=== PATIENT | female | born 1955 | race Caucasian/White ===

== ENCOUNTER 2017-04-25 15:53 | Outpatient (CLI) | payer OTHER, MEDICARE ==
[2017-04-25 17:26] LABS: Hemoglobin 13.4 g/dL (12.0-16.0); Mean Corpuscular Hemoglobin 30.7 pg (27.0-31.0); Mean Platelet Volume 8.6 fL (7.4-10.4); Platelet Count 300 thou/uL (130-400); RBC Distribution Width 13.2 % (11.5-14.5); Red Blood Cell (RBC) Count 4.38 mill/uL (4.20-5.40); White Blood Cell (WBC) Count 8.4 thou/uL (4.8-10.8)
[2017-04-25 17:56] LABS: ALT (SGPT) 15 U/L (8-55); AST (SGOT) 23 U/L (5-34); Albumin 3.8 g/dL (3.4-4.8); Alkaline Phosphatase 89 U/L (40-150); Anion Gap 16 mmol/L (10-20); BUN (Urea Nitrogen) 10 mg/dL (9.8-20.1); Bilirubin, Total 0.3 mg/dL (0.2-1.2); Calc. Creatinine Clearance 0 mL/min (70-130); Calcium 9.5 mg/dL (7.8-10.44); Carbon Dioxide 22 mmol/L (23-31); Chloride 105 mmol/L (98-107); Estimated GFR-MDRD 84; Globulin 3.6 g/dL (2.4-3.5); Glucose 96 mg/dL (80-115); Potassium 3.6 mmol/L (3.5-5.1); Protein, Total 7.4 g/dL (6.0-8.3); Sodium 139 mmol/L (136-145)
--- NOTE | 2017-04-25 18:56 | RAD ---
RADIOGRAPH CHEST 2 VIEWS: 04/25/17 HISTORY: 62-year-old female for preoperative evaluation. FINDINGS: There is no air space density, pulmonary edema, pleural effusion, pneumothorax, or cardiomegaly. Ther e are sternotomy wires. There is either a stent or calcification in one of the coronary arteries. IMPRESSION: No acute cardiopulmonary findings. Evidence for coronary artery atherosclerotic disease. randi [] POS: [facility]
--- NOTE | 2017-04-28 17:04 | EKG ---
Test Reason : Blood Pressure : / mmHG Vent. Rate : 079 BPM Atrial Rate : 079 BPM P-R Int : 154 ms QRS Dur : 082 ms QT Int : 400 ms P-R-T Axes : 021 -04 045 degrees QTc Int : 458 ms Normal sinus rhythm with frequent Premature ventricular complexes Low voltage QRS Inferior infarct , age undetermined Possible Anterolateral infarct , age undetermined Abnormal ECG When compared with ECG of 20-JUL-2015 07:48, Current undetermined rhythm precludes rhythm comparison, needs review T wave inversion no longer evident in Lateral leads Confirmed by SUDHIR LONDONO, SJohnny ([id number]) on 04/28/2017 5:04:14 PM Referred By: ANDREAS Confirmed By:DR. Brooklyn PEGUERO MD
== END 2017-04-25 15:54 | disposition home or self-care (01) ==
LOC: LABBT 15:53
PROVIDERS: ATTEND Internal Medicine Cardiovascular Disease
DX: Z01.818 Encounter for other preprocedural examination (principal); I50.9 Heart failure, unspecified; I25.10 Atherosclerotic heart disease of native coronary artery without angina pectoris
CPT/HCPCS: 71046; 80053; 85027; 93005; 93010

== ENCOUNTER 2017-05-01 05:53 | Observation (INO) | payer OTHER, MEDICARE ==
[2017-04-25 16:09] VITALS: BMI 41.1
[2017-05-01] MEDS ORDERED: Heparin 10,000 UNITS/1 ML VIAL ONE (06:27)
[2017-05-01] MEDS ORDERED: Lidocaine 1% (PF) 30 ML VIAL ONE (06:27)
[2017-05-01 06:56] LABS: #Eosinphils 0.1 thou/uL (0.0-0.7); #Lymphocytes 2.1 thou/uL (1.20-3.40); #Monocytes 0.6 thou/uL (0.11-0.59); #Neutrophils 4.5 thou/uL (1.40-6.50); %Basophils 0.4 % (0.0-1.0); %Eosinophils 1.9 % (0.0-10.0); %Lymphocytes 28.1 % (21.0-51.0); %Monocytes 8.4 % (0.0-10.0); %Neutrophils 61.2 % (42.0-75.0); Hemoglobin 12.5 g/dL (12.0-16.0); Mean Corpuscular HGB CONC 33.3 g/dL (32.0-36.0); Mean Corpuscular Hemoglobin 30.5 pg (27.0-31.0); Mean Corpuscular Volume 91.6 fl (81.0-99.0); Mean Platelet Volume 7.7 fL (7.4-10.4); Platelet Count 275 thou/uL (130-400); RBC Distribution Width 13.1 % (11.5-14.5); Red Blood Cell (RBC) Count 4.11 mill/uL (4.20-5.40); White Blood Cell (WBC) Count 7.3 thou/uL (4.8-10.8)
[2017-05-01 07:19] LABS: PTT 21.3 SEC (22.9-36.1)
[2017-05-01] MEDS ORDERED: Fentanyl 100 MCG/2 ML VIAL ONE (07:36)
[2017-05-01] MEDS ORDERED: Midazolam HCl 2 mg/2 ml Vial ONE (07:58)
[2017-05-01] MEDS ORDERED: Bivalirudin 250 MG VIAL ONE (08:00)
[2017-05-01] MEDS ORDERED: Temazepam 15 MG CAP PO PRN (08:24)
[2017-05-01] MEDS ORDERED: Zolpidem Tartrate 5 MG TAB PO PRN (08:25)
[2017-05-01] MEDS ORDERED: Sodium Chloride 0.9% 1,000 ML IV SCH (08:30)
[2017-05-01] MEDS ORDERED: Furosemide 20 MG TAB PO SCH (09:00)
[2017-05-01] MEDS ORDERED: Amlodipine 5 MG TAB PO SCH (09:00)
[2017-05-01] MEDS ORDERED: MORPHINE 10 MG/ML SYRINGE ONE (10:59)
[2017-05-01] MEDS ORDERED: Morphine 4 MG/ML VIAL ONE (11:01)
[2017-05-01] MEDS ORDERED: Dextrose 50% Abboject 50 ML SYRINGE SLOW IVP PRN (11:11)
[2017-05-01] MEDS ORDERED: Dextrose 5% in Water 1,000 ML IV PRN (11:11)
[2017-05-01] MEDS ORDERED: Insulin Regular 300 UNITS/3 ML VIAL SC PRN (11:11)
[2017-05-01] MEDS ORDERED: Morphine 5 MG/ML SYRINGE SLOW IVP SCH (11:15)
[2017-05-01] MEDS ORDERED: Iopamidol 370 76% 100 ML VIAL ONE (12:54)
[2017-05-01] MEDS ORDERED: Iopamidol 370 76% 50 ML VIAL FS ONE (12:54)
--- NOTE | 2017-05-01 13:41 | HP ---
HISTORY OF PRESENT ILLNESS: Ms. Ludy Gallegos is a 62-year-old white female that I followed since 1991. At that time, she had been complaining of intermittent chest discomfort for 2 years. She was placed on blood pressure medicine, her chest pain seemed to resolve. She then started to have pain a gain with episodes of substernal chest pressure radiating from her chest to the left side of her neck . EKG in [place] showed minimal T-wave changes. With 2 sublingual nitroglycerin, she had some impr ovement in her chest pain and then she was transferred here for evaluation. She was found to have pa lpable chest wall tenderness. She underwent thallium treadmill testing with no changes on EKG. Thal lium revealed anterior ischemia. She underwent cardiac catheterization, which revealed small, but no rmal coronary arteries and normal left ventricular function. Her chest wall pain resolved with Indoc in. She did have an elevated liver function test and underwent ERCP by Dr. Brush and was found to have a common duct stone. She underwent sphincterotomy with basket extraction of the common duct stone a nd then underwent open cholecystectomy. She did well until 05/2004. She started to notice lower sternal pressure that would radiate straight to her back to her left elbow and at times her right elbow and upper left jaw. These episodes would occur usually when she was walking or doing yardwork. The episodes would last anywhere from 5 minut es to 60 minutes. She will become short of breath and had significant diaphoresis, but no nausea or vomiting with the episodes. She thought this was due to indigestion and has been taking a lot of Say tac. On 05/25/2004, she had a much more intense episode and also this was prolonged. Her took her to the hospital; however, the discomfort resolved at the time of arrival and they decided not to go in. Three days later, she then had extreme weakness and fatigue all day long as well as multiple epi sodes of this chest discomfort. Again, she had a more intense and severe episode and [facility]. She was found to have positive cardiac enzymes and was transferred for further care. H er peak CK was in presentation 754, CK-MB 49.0 and troponin I of 12.3. Echo revealed posterolateral and inferior hypokinesis with an ejection fraction 45% to 50%. There was mild tricuspid regurgitatio n. At catheterization, she had normal left ventricular function with an ejection fraction of 50% to 55%. There was a 30% proximal LAD, 90% stenosis in a very small first diagonal. Circumflex totally occluded after a small first obtuse marginal. The distal vessel filled retrograde from the left and the right coronary artery. The right coronary artery had an 80% mid stenosis with ulcerated plaque a s well as 70% mid stenosis. There was a 90% stenosis at the takeoff of the right posterior descendin g. She underwent intervention with placement of Taxus 2.5 x 24 mm stent in the mid circumflex with reduc tion from 100-0%. She did not have any further episodes of chest pain during that hospital stay. Bari gutierrez also was told on a daily basis that she needed to stop smoking. Her LDL was 74 and she was placed on low dose Zocor. She was readmitted in 07/2004, continued to complain of episodes of chest discomfort. She underwent repeat catheterization and had an ejection fraction of 50% to 55%. There continued to be good result s from the circumflex stent placed in the mid vessel. There was an 80% mid right coronary artery les ion with an ulcerated plaque. There was 70% mid stenosis. The right posterior descending had a 90% ostial lesion. She then underwent CABG x2 by Dr. Gilberto Arora. There was a vein graft to the right posterolateral and piggybacked on to this was a vein graft to the right posterior descending. Her p ostoperative course was unremarkable. In 02/2005, she was admitted for chest discomfort and cardiac enzymes were negative. Then, she decid ed to leave the hospital. In general, she has done fairly well from 2004 until 07/2015 when she star cecelia having chest tightness after she possibly had food poisoning. She had inferior ST segment change s and transferred here, those changes had improved. She underwent cardiac catheterization. There wa s anteroapical and inferoapical akinesis with an ejection fraction of 30% to 35%. There was a 50% pr oximal LAD, 99% mid LAD lesion with thrombus present. The circumflex continued to show good mid vess el stent placement. The right coronary artery was totally occluded in its mid portion. The right po sterolateral graft was patent. The right posterior descending graft piggybacked onto the right poste rolateral was occluded. She then underwent pronto thrombectomy followed by a placement of Synergy 3.0 x 20 mm and 2.5 x 8 mm stent with good results. [facility] to an ejection fraction of 30% to 35%. She then returned 5 days later complaining of progressive weakness and muscle aches. It was felt th is probably was due to statin therapy and she was switched to Livalo and CoQ10. However, even on Balbina harry, she continued to have muscle pain and weakness and stopped that. Ultimately, she has been place d on Repatha mg q.2 weeks. Repeat echocardiogram several months later revealed improvement in her ejection fraction to 35% to 40%. She then had another echocardiogram that showed an ejection fra ction of 45% to 50%. On continued follow up, echo in 11/2016 revealed an ejection fraction of 30% to 35%. She did not hav e any significant worsening of her symptoms of shortness of breath or chest discomfort. [facility] in her ejection fraction. On 04/25/2017, another echocardiogra m again revealed ejection fraction of 30% to 35% with apical akinesis, mild mitral regurgitation, selma dence for diastolic dysfunction and mild tricuspid regurgitation. With her fall in ejection fraction, it was recommended she undergo cardiac catheterization to redefin e her anatomy. Risks of this were discussed with the patient including , myocardial infarction, dye reaction, vascular injury, CVA, transfusion, limb loss, renal loss, etc. Also, risk of interven tion with PTCA and stent placement were discussed including , myocardial infarction, emergent CA BG, restenosis, stent thrombosis, vessel perforation, etc. If she has not had any significant change in her coronary anatomy, then consideration certainly should be given to an ICD insertion. PAST MEDICAL HISTORY: Diabetes, hypertension, hypercholesterolemia and hypertriglyceridemia. PAST SURGICAL HISTORY: Open cholecystectomy, tonsillectomy, appendectomy, hysterectomy, breast reduc tion surgery and CABG. HOME MEDICATIONS: Repatha mg q.2 weeks, carvedilol 25 mg b.i.d., aspirin 81 daily, Brilinta 90 b.i.d., Zoloft 50 daily, lisinopril 20 mg b.i.d., furosemide 40 mg q.a.m., metformin 500 mg daily an d amitriptyline 25 at bedtime p.r.n. ALLERGIES: KEFLEX, causes anaphylaxis; PHENERGAN; SULFA; STRIBILD; CIPRO; and STADOL. SOCIAL HISTORY: She smoked 1 pack per day, but has quit. She does not drink alcohol. FAMILY HISTORY: Father of [place] in his late 40s. REVIEW OF SYSTEMS: Twelve-point review of systems otherwise unremarkable. PHYSICAL EXAMINATION: VITAL SIGNS: Blood pressure 150/72 and pulse of 80. HEENT: PERRL. NECK: Supple. CHEST: Clear. CARDIAC: S1 and S2 are normal without any S3, S4 or murmurs. ABDOMEN: Normal bowel sounds without tenderness, organomegaly. The abdomen is obese. EXTREMITIES: Revealed no clubbing, cyanosis or edema. NEUROLOGIC: Grossly intact. SKIN: Warm and dry. LABORATORY DATA: Pending. IMPRESSION: 1. Worsening ejection fraction - she had an ejection fraction of 30% to 35% in 07/2005 at the time o f her second myocardial infarction and underwent stent placement in the left anterior descending. He r ejection fraction also improved 45% to 50%. However, over the last 4 months, her ejection fraction has been 30% to 35%. She has had LifeVest for the last 3-4 months. 2. Coronary artery disease - non-Q-wave myocardial infarction in 07/2004 with total occlusion of the circumflex, which underwent stent placement. She then continued to have chest discomfort in 07/2004 , underwent coronary artery bypass grafting x2 to the right posterolateral and right posterior descen ding. 3. Non-Q-wave myocardial infarction in 07/2015, followed by drug-eluting stent placement in the mid left anterior descending. 4. Hypertension. 5. Diabetes. 6. Hypercholesterolemia. 7. Positive family history. 8. Former smoker. 9. Obesity. PLAN: The patient will undergo cardiac catheterization. She is already on Brilinta and if stent is needed, she will have a drug-coated stent placed. Also, if she does not have any significant worseni ng of her coronary anatomy, consideration should be given to ICD placement.
--- NOTE | 2017-05-01 16:01 | CON ---
ELECTROPHYSIOLOGY CONSULTATION NOTE DATE OF CONSULTATION: 05/01/2017 CONTRACT ENGINEER: Ian Arthur M.D. PRIMARY CARE PROVIDER: Sulema Ramos M.D. REASON FOR CONSULTATION: Ischemic cardiomyopathy and reduced LVEF 30% to 35%. HISTORY OF PRESENT ILLNESS: Ms. Gallegos is being referred by Dr. Arthur for her ischemic cardiomyopathy with reducing left ventricular ejection fraction. In the past, her LVEF has been preserved or mildly reduced; however, in 11/2016 , was evaluated at 30% to 35%. At that time, she began wearing a LifeVest and on reevaluation recently, EF was continued in the 30% to 35% range despite optimal medical management. She underwent left heart catheterization today on 05/01/2017 and did not require PCI. There is no lesion or new ischemia found. She does have a significant history of coronary artery disease and has previously undergone coronary artery bypass grafting. A referral today is for evaluation for ICD implant. PAST MEDICAL HISTORY: 1. Coronary artery disease with prior non-ST elevation WI in 2004 with a 2- vessel bypass in 2004. 2. Hypertension. 3. Hypercholesterolemia. 4. Morbid obesity. 5. Lower back pain. 6. Ischemic cardiomyopathy, LVEF 30% to 35% by echo in 11/21 and now by left heart catheterization. 7. Hypertension. 8. Former tobacco habituation. 9. Type 2 diabetes, on metformin, no insulin use. HOME MEDICATIONS: Carvedilol 25 mg b.i.d., aspirin 81 mg daily, Zoloft 50 mg daily, Brilinta 80 mg b.i.d., lisinopril 20 mg daily, tramadol-acetaminophen 37.5-325 mg tablets as needed, amitriptyline 25 mg at bedtime, amlodipine 5 mg daily, metformin 500 mg 1 tab daily, Lasix 40 mg daily, Repatha subcutaneous injection 140 mg per mL, 1 mL injected every 2 weeks. ALLERGIES: Include STADOL, KEFLEX, CIPRO, PHENERGAN and SULFA medications. FAMILY HISTORY: Positive for coronary artery disease of early onset before the age of 55. Negative for sudden cardiac . SOCIAL HISTORY: Former tobacco habituation, quit in 2004, negative for alcohol consumption and negative for illicit drug use. REVIEW OF SYSTEMS: A 12-point review of systems was conducted and is negative except that is listed in the HPI. Today, I found patient is feeling well. She has not had any heart racing, palpitations, chest pain or pressure. She denies any syncopal or near syncopal episodes. She is currently reporting some lower back pain as she is on bed rest from her recent left heart catheterization. She has chronic swelling of the extremities that is nonprogressive. She also experiences dyspnea on exertion that is longstanding. PHYSICAL EXAMINATION: VITAL SIGNS: Blood pressure 147/60, heart rate 89, saturating 94% oxygen on room air, respirations are 16 and temperature is 36.5 degrees Celsius. GENERAL: This is a well-developed, well-appearing female. She is morbidly obese. She is no acute distress. Her sclerae are anicteric and EOMs are intact. NECK: Supple without jugular venous distention. HEENT: Sclerae are anicteric. Her oral mucosa is moist and pink with adequate dentition. LUNGS: Respirations are even and unlabored with clear breath sounds noted bilaterally. No adventitious sounds are heard. HEART: Rate is regularly regular without significant murmur, rub or gallop. ABDOMEN: Soft, obese and nontender. With positive bowel tones noted throughout. NEUROLOGIC: Her speech is clear. Affect is appropriate. Her neurologic exam is grossly intact. Cranial nerves II-XII and exam is nonfocal. She has recently undergone moderate sedation for her procedure and is still in the recovery phase; however, no deficits are noted and she is alert and oriented. Gait was not assessed as patient is on bed rest. DATA BASE: EKG: Sinus rhythm with occasional ventricular ectopy, rate 89. A left heart catheterization performed today on 05/01/[address] Arthur for diagnosis of coronary artery disease and bypass grafting revealed apical dyskinesis and mild global hypokinesis. Ejection fraction was 30% to 35%. There was mild mitral regurgitation. Coronary arteries left main was normal, LAD 50% proximal, 30% mid and 50% mid LAD in stent restenosis. Circumflex was patent. There was a patent stent noted proximally and RCA has a 100% chronic occlusion in the mid region of the vessel. She has 2 prior grafts, one patent with a 30% proximal lesion and her graft to the RPDA, which is then chronically occluded for some time. IMPRESSION: 1. Systolic heart failure, chronic heart failure and ischemic cardiomyopathy, moderate to severely reduced left ventricular ejection fraction estimated at 30 % to 35%. 2. Stable coronary artery disease, prior coronary artery bypass grafting and non-ST elevation myocardial infarction. 3. Morbid obesity. 4. Type 2 diabetes. 5. Hypertension. PLAN: At this point. ICD was discussed with the patient and her at length including risks and benefits. Clinical decision was utilized demonstrating benefits and considerations regarding ICD implantation. The patient and her verbalized understanding. They understand the risks associated with the procedure, including pain, infection, damage to the blood vessel, pneumothorax, perforation of the heart, arrhythmias and possibly . They acknowledges risks and wished to proceed with scheduling. We will proceed with ICD implant possibly later today or tomorrow morning, likely be tomorrow morning. We will keep the patient n.p.o. in anticipation of that. I performed the interview and physicial exam with decision making personally. TIFFANY
[2017-05-01] MEDS ORDERED: Acetaminophen/Codeine 30-300mg Tablet PO PRN (16:03)
[2017-05-01] MEDS: Acetaminophen/Codeine 30-300mg Tablet PO PRN ×2 (16:29→21:12)
[2017-05-01] MEDS: Carvedilol 25 MG TAB PO SCH (16:41)
[2017-05-01] MEDS: Aspirin 81 mg Enteric Coated Tablet PO SCH (19:36)
[2017-05-01] MEDS: Lisinopril 20 MG TAB PO SCH ×2 (19:39→21:10)
[2017-05-02 05:55] LABS: #Eosinphils 0.1 thou/uL (0.0-0.7); #Lymphocytes 1.6 thou/uL (1.20-3.40); #Monocytes 0.4 thou/uL (0.11-0.59); #Neutrophils 3.6 thou/uL (1.40-6.50); %Basophils 0.6 % (0.0-1.0); %Eosinophils 1.9 % (0.0-10.0); %Lymphocytes 27.7 % (21.0-51.0); %Monocytes 7.5 % (0.0-10.0); %Neutrophils 62.3 % (42.0-75.0); Hemoglobin 11.6 g/dL (12.0-16.0); Mean Corpuscular HGB CONC 30.6 g/dL (32.0-36.0); Mean Corpuscular Hemoglobin 28.7 pg (27.0-31.0); Mean Corpuscular Volume 93.8 fl (81.0-99.0); Mean Platelet Volume 8.2 fL (7.4-10.4); Platelet Count 220 thou/uL (130-400); RBC Distribution Width 13.1 % (11.5-14.5); Red Blood Cell (RBC) Count 4.04 mill/uL (4.20-5.40); White Blood Cell (WBC) Count 5.8 thou/uL (4.8-10.8)
[2017-05-02 06:08] LABS: AST (SGOT) 46 U/L (5-34); Albumin 3.3 g/dL (3.4-4.8); Anion Gap 13 mmol/L (10-20); BUN (Urea Nitrogen) 8 mg/dL (9.8-20.1); Bilirubin, Total 0.5 mg/dL (0.2-1.2); Calc. Creatinine Clearance 155 mL/min (70-130); Calcium 8.5 mg/dL (7.8-10.44); Carbon Dioxide 21 mmol/L (23-31); Chloride 108 mmol/L (98-107); Estimated GFR-MDRD Greater than 90; Globulin 2.9 g/dL (2.4-3.5); Glucose 117 mg/dL (80-115); Protein, Total 6.2 g/dL (6.0-8.3); Sodium 138 mmol/L (136-145)
[2017-05-02 06:16] LABS: ALT (SGPT) 29 U/L (8-55); Alkaline Phosphatase 87 U/L (40-150)
[2017-05-02] MEDS ORDERED: Lidocaine 1% (PF) 30 ML VIAL ONE ×2 (08:59→15:24)
[2017-05-02] MEDS ORDERED: CEFAZOLIN/Water 2 GM/20 ML SYRINGE ONE (08:59)
[2017-05-02] MEDS ORDERED: Iopamidol 370 76% 50 ML VIAL FS ONE (12:23)
[2017-05-02] MEDS: Lisinopril 20 MG TAB PO SCH ×2 (12:33→21:09)
[2017-05-02] MEDS: Carvedilol 25 MG TAB PO SCH ×2 (12:33→17:46)
[2017-05-02] MEDS: Aspirin 81 mg Enteric Coated Tablet PO SCH (12:33)
[2017-05-02] MEDS: Furosemide 40 MG TAB PO SCH (12:36)
[2017-05-02] MEDS ORDERED: Fentanyl 250 MCG/5 ML VIAL ONE (15:09)
[2017-05-02] MEDS ORDERED: Midazolam HCl 2 mg/2 ml Vial ONE ×3 (15:10→15:41)
[2017-05-02] MEDS ORDERED: Acetaminophen/Codeine 30-300mg Tablet PO PRN ×2 (16:45)
[2017-05-02] MEDS: Clindamycin 150 MG CAP PO SCH (17:46)
--- NOTE | 2017-05-02 18:50 | RAD ---
SINGLE VIEW OF THE CHEST: 05/02/17 COMPARISON: 04/25/17 HISTORY: Pacemaker placement for cardiac arrhythmias. FINDINGS: Single view of the chest shows a cardiomediastinal silhouette which is upper limits of normal in size . The patient is status post sternotomy. There has been interval placement of a pacemaker with its ti p in the right ventricle. No consolidation, mass, pneumothorax or pleural effusion are seen. IMPRESSION: Status post pacemaker placement without evidence of complication. POS: [facility]
[2017-05-03] MEDS: Clindamycin 150 MG CAP PO SCH ×2 (01:28→05:11)
[2017-05-03] MEDS: Carvedilol 25 MG TAB PO SCH (08:08)
[2017-05-03] MEDS: Aspirin 81 mg Enteric Coated Tablet PO SCH (08:08)
[2017-05-03] MEDS: Lisinopril 20 MG TAB PO SCH (08:09)
[2017-05-03] MEDS: Furosemide 40 MG TAB PO SCH (08:09)
[2017-05-03 08:10] VITALS: BP 153/83
[2017-05-03 08:19] VITALS: TEMP 97.8
--- NOTE | 2017-05-03 08:44 | RAD ---
AP VIEW CHEST: Date: 05/03/17 INDICATION: Pacemaker placement. IMPRESSION: Examination is not appreciably changed from the comparison study. AICD is unchanged in position. No p neumothorax is demonstrated. POS: [facility]
--- NOTE | 2017-05-03 13:29 | DIS ---
DISCHARGE DIAGNOSES: 1. Ischemic cardiomyopathy with worsening ejection fraction to 30%-35% over the last 4 months. 2. Coronary artery disease - non-Q-wave myocardial infarction in 05/2004 with total occlusion of the circumflex, followed by stent placement. In 07/2004, she underwent coronary artery bypass grafting x2 to the right posterolateral and right posterior descending. 3. Non-Q-wave myocardial infarction in 07/2015 with the right posterior descending graft closed at t hat time. She underwent drug-eluting stent in the mid left anterior descending. 4. Stable coronary anatomy with normal flow wire of the mid left anterior descending. 5. Hypertension. 6. Diabetes. 7. Hypercholesterolemia, under poor control with LDL increasing from 19 to 72 while on Repatha, rein forced the need for low cholesterol diet. 8. Positive family history. 9. Former smoker. 10. Obesity. 11. Single chamber ICD placement on this admission. DISCHARGE DISPOSITION: The patient will be seen in 3 months with complete metabolic profile, fasting lipid profile, and CardioSight had been obtained. DISCHARGE MEDICATIONS: Clindamycin 300 mg q.6 hours x1 week, aspirin 81 daily, carvedilol 25 mg b.i. d., furosemide 40 mg q.a.m., insulin - Levemir, sliding scale, insulin - regular, lisinopril 20 mg b. i.d., metformin 500 mg q.a.m., Zoloft 50 mg daily, temazepam 30 mg at bedtime p.r.n., Ambien 5 mg at bedtime p.r.n., Repatha 140 mg q.2 weeks. HOSPITAL COURSE: Ms. Gallegos on routine a followup in 11/2016 and was found to have ejection fraction of 30%-35%. She did have improvement to 45%-50% after her myocardial infarction. She was fitted wi th a LifeVest and a repeat echocardiogram on 04/25/2017, continued to reveal ejection fraction of 30% -35%. She underwent cardiac catheterization which revealed anterior akinesis, apical dyskinesis, and mild g lobal hypokinesis with ejection fraction of 30%-35%. There was mild mitral regurgitation. Coronary arteries revealed normal left main, 50% proximal LAD, 30% stenosis in the mid LAD proximal to the joaquín nt, 50% mid LAD stent in-stent restenosis. There was a proximal circumflex stent exchanged show good results. The right coronary was totally occluded. Bypass graft to the right posterolateral artery was patent. The graft to the right posterior descending piggybacked onto the right posterolateral gr aft was occluded as it has been for many years. Consultation was obtained with Dr. Flanagan regarding ICD placement and a single chamber ICD was placed. She was observed overnight and then discharged. It was felt she may discontinue Brilinta at this ti me.
--- NOTE | 2017-05-03 15:13 | PRG ---
DATE OF SERVICE: 05/03/2017 SUBJECTIVE: Ms. Gallegos is doing well one day after her ICD implant. OBJECTIVE DATA: VITAL SIGNS: Blood pressure is 153/83, heart rate 80, respirations 18, temperature 97.8 degrees Fahr enheit. GENERAL: She is alert and oriented woman in no apparent distress. NECK: Supple. Jugular veins not distended. CHEST: Coarse without crackles. CARDIOVASCULAR: Heart sounds are regular to rate and rhythm. Left precordial pacemaker defibrillato r insertion site is well healed. ABDOMEN: Benign. EXTREMITIES: Lower extremities without edema. DATABASE: The chest x-ray reveals no pneumothorax. ICE interrogation revealed an adequately functio regan single chamber ICD battery longevity beginning of life. Lead parameters are adequate ASSESSMENT AND PLAN: Ms. Gallegos is a pleasant 62-year-old woman with prior history of congestive hea rt failure and ischemic cardiomyopathy, who underwent a single-chamber ICD implantation yesterday. S he seems to be doing well 1 day postoperative. Plan is one week of antibiotics and follow up in 2 we eks at the office for wound check.
[2017-05-04] MEDS ORDERED: metFORMIN 500 MG TAB PO SCH (08:00)
== END 2017-05-03 10:48 | disposition home or self-care (01) ==
LOC: CCL 05:53 → 2SW 09:10
PROVIDERS: ADMIT Internal Medicine Cardiovascular Disease; ATTEND Internal Medicine Cardiovascular Disease
PROC: 0JH608Z Insertion of Defibrillator Generator into Chest Subcutaneous Tissue and Fascia, Open Approach (ICD-10-PCS; principal; 2017-05-03)
PROC: 02HK3KZ Insertion of Defibrillator Lead into Right Ventricle, Percutaneous Approach (ICD-10-PCS; 2017-05-03)
PROC: 4A023N7 Measurement of Cardiac Sampling and Pressure, Left Heart, Percutaneous Approach (ICD-10-PCS; 2017-05-03)
PROC: B2151ZZ Fluoroscopy of Left Heart using Low Osmolar Contrast (ICD-10-PCS; 2017-05-03)
PROC: 4A023N7 Measurement of Cardiac Sampling and Pressure, Left Heart, Percutaneous Approach (ICD-10-PCS; 2017-05-03)
PROC: B2121ZZ Fluoroscopy of Single Coronary Artery Bypass Graft using Low Osmolar Contrast (ICD-10-PCS; 2017-05-03)
DX: I25.5 Ischemic cardiomyopathy (principal); I25.10 Atherosclerotic heart disease of native coronary artery without angina pectoris; I25.2 Old myocardial infarction; E11.9 Type 2 diabetes mellitus without complications; I11.0 Hypertensive heart disease with heart failure; I50.22 Chronic systolic (congestive) heart failure; E78.00 Pure hypercholesterolemia, unspecified; M54.5 Low back pain; E66.01 Morbid (severe) obesity due to excess calories; Z68.41 Body mass index [BMI] 40.0-44.9, adult; Z79.84 Long term (current) use of oral hypoglycemic drugs; Z79.82 Long term (current) use of aspirin; Z79.899 Other long term (current) drug therapy; Z88.1 Allergy status to other antibiotic agents; Z88.2 Allergy status to sulfonamides; Z88.8 Allergy status to other drugs, medicaments and biological substances; Z95.1 Presence of aortocoronary bypass graft; Z90.49 Acquired absence of other specified parts of digestive tract; Z90.89 Acquired absence of other organs; Z90.710 Acquired absence of both cervix and uterus; Z98.890 Other specified postprocedural states; Z87.891 Personal history of nicotine dependence; Z82.49 Family history of ischemic heart disease and other diseases of the circulatory system
CPT/HCPCS: 33249; 36005; 36415; 36416; 71045; 75820; 80053; 85025; 85347; 85610; 85730; 93005; 93010; 93459; 93571; 96361; 96374; 99152; 99153; A4216; C1769; C1777; C1786; C1887; G0378; J0153; J0583; J1644; J2001; J2250; J2270; J3010; J3490

== ENCOUNTER → 2017-05-25 | Day surgery (SDC) | payer OTHER, MEDICARE ==
[2017-05-24 09:57] VITALS: BMI 38.9
[~2017-05-25] MED LIST: Clindamycin/D5W 900 mg/50 ml Premix Bag ONE; Fentanyl 100 MCG/2 ML VIAL ONE; Levofloxacin 500 mg/D5W 100 ml Premix Bag ONE; Lidocaine 1% (PF) 30 ML VIAL ONE; Lidocaine 1% PF 5 ML VIAL ONE; Midazolam HCl 2 mg/2 ml Vial ONE; PHENYLEPHRINE-NS 100 MCG/ML 10 ML SYRINGE ONE; PROPOFOL 200 MG/20 ML VIAL ONE
[2017-05-25 11:10] LABS: #Basophils 0.1 thou/uL (0.0-0.2); #Eosinphils 0.2 thou/uL (0.0-0.7); #Lymphocytes 1.6 thou/uL (1.20-3.40); #Monocytes 0.4 thou/uL (0.11-0.59); #Neutrophils 4.3 thou/uL (1.40-6.50); %Basophils 0.8 % (0.0-1.0); %Eosinophils 2.6 % (0.0-10.0); %Lymphocytes 24.9 % (21.0-51.0); %Monocytes 6.7 % (0.0-10.0); Hemoglobin 12.9 g/dL (12.0-16.0); Mean Corpuscular HGB CONC 33.2 g/dL (32.0-36.0); Mean Corpuscular Hemoglobin 31.2 pg (27.0-31.0); Mean Corpuscular Volume 93.8 fl (81.0-99.0); Mean Platelet Volume 8.2 fL (7.4-10.4); Platelet Count 272 thou/uL (130-400); Red Blood Cell (RBC) Count 4.15 mill/uL (4.20-5.40); White Blood Cell (WBC) Count 6.6 thou/uL (4.8-10.8)
[2017-05-25 11:17] LABS: INR-International Normal Ratio 1.1; Prothrombin Time 13.8 SEC (12.0-14.7)
[2017-05-25 11:34] LABS: Anion Gap 16 mmol/L (10-20); BUN (Urea Nitrogen) 15 mg/dL (9.8-20.1); Calc. Creatinine Clearance 124 mL/min (70-130); Calcium 9.7 mg/dL (7.8-10.44); Carbon Dioxide 21 mmol/L (23-31); Chloride 106 mmol/L (98-107); Estimated GFR-MDRD 82; Glucose 122 mg/dL (80-115); Potassium 4.5 mmol/L (3.5-5.1); Sodium 138 mmol/L (136-145)
--- NOTE | 2017-05-25 13:00 | RAD ---
CHEST ONE VIEW: HISTORY: Cardiac arrhythmia. Lead change. COMPARISON: 05/03/2017 FINDINGS: The cardiac silhouette is magnified and at the upper limits of normal in size. The pulmonary vascula ture is unremarkable. The mediastinum is midline with postoperative changes and a single lead left s ubclavian cardiac defibrillator. There is no lobar consolidation or evidence of pneumothorax. IMPRESSION: Left subclavian defibrillator is in good radiographic position. POS: [facility]
== END ==
LOC: CCL 10:37
PROVIDERS: ATTEND Internal Medicine Cardiovascular Disease
PROC: 02HK0JZ Insertion of Pacemaker Lead into Right Ventricle, Open Approach (ICD-10-PCS; principal; 2017-05-25)
PROC: 02PA3MZ Removal of Cardiac Lead from Heart, Percutaneous Approach (ICD-10-PCS; principal; 2017-05-25)
DX: I25.5 Ischemic cardiomyopathy (principal); I11.0 Hypertensive heart disease with heart failure; I50.22 Chronic systolic (congestive) heart failure; E11.9 Type 2 diabetes mellitus without complications; E78.00 Pure hypercholesterolemia, unspecified; E66.9 Obesity, unspecified; Z68.39 Body mass index [BMI] 39.0-39.9, adult; Z88.1 Allergy status to other antibiotic agents; Z88.2 Allergy status to sulfonamides; Z79.02 Long term (current) use of antithrombotics/antiplatelets; Z79.82 Long term (current) use of aspirin; Z79.84 Long term (current) use of oral hypoglycemic drugs; Z79.899 Other long term (current) drug therapy; Z87.891 Personal history of nicotine dependence
CPT/HCPCS: 33226; 36415; 71045; 80048; 85025; 85610; 85730; 93642; C1777; J1956; J2001; J2250; J2704; J3010; J3490

== ENCOUNTER 2020-09-15 10:07 | Inpatient (IN) | payer BC, MEDICARE ==
[2020-09-15] MEDS ORDERED: Dexamethasone 4 mg/ml Vial ONE (10:43)
[2020-09-15] MEDS ORDERED: Temazepam 15 MG CAP PO PRN (14:19)
[2020-09-15] MEDS ORDERED: Dextrose 50% Abboject 50 ML SYRINGE SLOW IVP PRN (14:19)
[2020-09-15] MEDS ORDERED: Dextrose 5% in Water 1,000 ML IV PRN (14:19)
[2020-09-15] MEDS ORDERED: Ondansetron PF 4 MG/2 ML Vial ONE (14:22)
[2020-09-15] MEDS ORDERED: REMDESIVIR 200 MG in Sodium Chloride 0.9% 250 ML 210 ML IV SCH (18:00)
[2020-09-15] MEDS: HumaLOG 300 UNITS/3 ML VIAL SC PRN (18:07)
[2020-09-15] MEDS: Ondansetron PF 4 MG/2 ML Vial IVP PRN (18:14)
[2020-09-15] MEDS: Benzonatate 100 MG CAP PO PRN (20:08)
[2020-09-15] MEDS: Enoxaparin Sodium 40 MG/0.4 ML SYRINGE SC SCH (20:08)
[2020-09-15] MEDS: GUAIFENESIN SF SOLN 200 MG/10 ML UDCUP PO PRN (21:41)
[2020-09-15] MEDS: Acetaminophen 325 MG TAB PO PRN (22:15)
[2020-09-16] MEDS: Ondansetron PF 4 MG/2 ML Vial IVP PRN ×2 (01:43→08:00)
[2020-09-16] MEDS: GUAIFENESIN SF SOLN 200 MG/10 ML UDCUP PO PRN ×2 (01:43→05:46)
[2020-09-16] MEDS: Benzonatate 100 MG CAP PO PRN (04:44)
[2020-09-16] MEDS: Acetaminophen 325 MG TAB PO PRN ×3 (06:44→23:14)
[2020-09-16] MEDS: Enoxaparin Sodium 40 MG/0.4 ML SYRINGE SC SCH ×2 (07:59→19:45)
[2020-09-16] MEDS: Zinc Sulfate 220 MG CAP PO SCH (08:00)
[2020-09-16 08:25] LABS: #Lymphocytes 0.7 thou/uL (1.20-3.40); #Monocytes 0.3 thou/uL (0.11-0.59); #Neutrophils 7.2 thou/uL (1.40-6.50); %Eosinophils 0.2 % (0.0-10.0); %Lymphocytes 8.4 % (21.0-51.0); %Monocytes 3.2 % (0.0-10.0); %Neutrophils 88.2 % (42.0-75.0); Hemoglobin 12.3 g/dL (12.0-16.0); Mean Corpuscular HGB CONC 32.7 g/dL (32.0-36.0); Mean Corpuscular Hemoglobin 30.4 pg (27.0-31.0); Mean Platelet Volume 8.9 fL (7.4-10.4); Platelet Count 223 thou/uL (130-400); RBC Distribution Width 12.5 % (11.5-14.5); Red Blood Cell (RBC) Count 4.05 mill/uL (4.20-5.40); White Blood Cell (WBC) Count 8.2 thou/uL (4.8-10.8)
[2020-09-16 08:37] LABS: Anion Gap 17 mmol/L (10-20); BUN (Urea Nitrogen) 42 mg/dL (9.8-20.1); CRP (Inflammatory) 19.62 mg/dL (= or < 0.5); Calc. Creatinine Clearance 99 mL/min (70-130); Calcium 8.5 mg/dL (7.8-10.44); Carbon Dioxide 19 mmol/L (23-31); Chloride 105 mmol/L (98-107); Glucose 122 mg/dL (80-115); Potassium 4.3 mmol/L (3.5-5.1); Sodium 137 mmol/L (136-145)
[2020-09-16] MEDS: Aspirin 81 mg Enteric Coated Tablet PO SCH (08:41)
[2020-09-16] MEDS: guaiFENesin ER 600 MG TAB PO SCH ×2 (08:41→19:42)
[2020-09-16] MEDS: Benzonatate 100 MG CAP PO SCH ×2 (08:42→16:00)
[2020-09-16] MEDS: Furosemide 40 MG TAB PO SCH ×2 (08:42→14:50)
[2020-09-16] MEDS ORDERED: Dexamethasone 6 MG in Sodium Chloride 0.9% 50 ML IVPB SCH (09:00)
[2020-09-16] MEDS ORDERED: Non-Formulary Item 1 EACH (Sertraline Hcl [Zoloft] 50 MG Tab) PO SCH (09:00)
[2020-09-16] MEDS ORDERED: Carvedilol 25 MG TAB PO SCH ×2 (09:00)
[2020-09-16] MEDS ORDERED: Ascorbic Acid 500 mg Chewable Tablet PO SCH (09:00)
[2020-09-16] MEDS ORDERED: SODIUM CHLORIDE 0.9% IV SCH (10:45)
[2020-09-16] MEDS ORDERED: Tocilizumab 400 MG in Sodium Chloride 0.9% 80 ML IV SCH (10:45)
[2020-09-16] MEDS ORDERED: TOCILIZUMAB IV SCH (10:45)
[2020-09-16] MEDS: Metoclopramide HCl 10 MG/2 ML VIAL IVP PRN ×2 (11:09→19:42)
[2020-09-16] MEDS: HumaLOG 300 UNITS/3 ML VIAL SC PRN (13:10)
[2020-09-16] MEDS: Pantoprazole 40 MG VIAL IVPB SCH (14:50)
[2020-09-16] MEDS ORDERED: REMDESIVIR 100 MG in Sodium Chloride 0.9% 250 ML 230 ML IV SCH (18:00)
[2020-09-16] MEDS: Ondansetron ODT 4 MG TAB PO PRN (18:10)
[2020-09-16] MEDS: hydrALAZINE 20 MG/ML VIAL SLOW IVP PRN ×2 (18:10→21:51)
[2020-09-16] MEDS: Amlodipine 5 MG TAB PO SCH (20:22)
[2020-09-16] MEDS: REMDESIVIR 100 MG in Sodium Chloride 0.9% 250 ML 230 ML IV SCH (20:22)
[2020-09-16] MEDS: Melatonin 3 MG TAB PO PRN (23:14)
[2020-09-17] MEDS: Benzonatate 100 MG CAP PO SCH ×3 (01:02→17:14)
[2020-09-17 05:33] LABS: Anion Gap 16 mmol/L (10-20); BUN (Urea Nitrogen) 39 mg/dL (9.8-20.1); Calc. Creatinine Clearance 100 mL/min (70-130); Calcium 8.4 mg/dL (7.8-10.44); Carbon Dioxide 20 mmol/L (23-31); Chloride 105 mmol/L (98-107); Glucose 143 mg/dL (80-115); Potassium 4.3 mmol/L (3.5-5.1); Sodium 137 mmol/L (136-145)
[2020-09-17] MEDS ORDERED: Loratadine 10 MG TAB PO PRN (07:52)
[2020-09-17] MEDS ORDERED: Hydrocerin (Eucerin) Cream 120 gm Jar TOP PRN (07:52)
[2020-09-17] MEDS ORDERED: Sodium Chloride 0.65% Nasal 44 ML BOT EA NARE PRN (07:52)
[2020-09-17] MEDS ORDERED: Senokot S 8.6-50 MG TAB PO PRN (07:52)
[2020-09-17] MEDS ORDERED: Calcium Carbonate 500 MG ChewTAB PO PRN (07:52)
[2020-09-17] MEDS ORDERED: Labetalol HCl 100 MG/20 ML VIAL SLOW IVP PRN (07:52)
[2020-09-17] MEDS ORDERED: Artificial Tear Sol 15 ML BOT EA EYE PRN (07:52)
[2020-09-17] MEDS ORDERED: Bisacodyl 5 MG TAB PO PRN (07:52)
[2020-09-17] MEDS ORDERED: Cepastat Lozenges 1 LOZ PO PRN (07:52)
[2020-09-17] MEDS: Carvedilol 6.25 MG TAB PO SCH ×2 (08:09→17:11)
[2020-09-17] MEDS: Amlodipine 5 MG TAB PO SCH ×2 (08:09→20:50)
[2020-09-17] MEDS: Aspirin 81 mg Enteric Coated Tablet PO SCH (08:10)
[2020-09-17] MEDS: Ascorbic Acid 500 mg Chewable Tablet PO SCH (08:10)
[2020-09-17] MEDS: Dexamethasone 4 mg/ml Vial SLOW IVP SCH (08:10)
[2020-09-17] MEDS: Furosemide 40 MG TAB PO SCH ×2 (08:11→13:23)
[2020-09-17] MEDS: guaiFENesin ER 600 MG TAB PO SCH ×2 (08:11→20:50)
[2020-09-17] MEDS: Enoxaparin Sodium 40 MG/0.4 ML SYRINGE SC SCH ×2 (08:11→20:50)
[2020-09-17] MEDS: Metoclopramide HCl 10 MG/2 ML VIAL IVP PRN (08:12)
[2020-09-17] MEDS: Zinc Sulfate 220 MG CAP PO SCH (08:12)
[2020-09-17 09:00] LABS: #Monocytes 0.5 thou/uL (0.11-0.59); #Neutrophils 4.5 thou/uL (1.40-6.50); %Basophils 0.4 % (0.0-1.0); %Eosinophils 0.1 % (0.0-10.0); %Lymphocytes 16.7 % (21.0-51.0); %Neutrophils 74.9 % (42.0-75.0); Hemoglobin 12.9 g/dL (12.0-16.0); Mean Corpuscular HGB CONC 32.4 g/dL (32.0-36.0); Mean Corpuscular Hemoglobin 29.8 pg (27.0-31.0); Mean Corpuscular Volume 91.8 fL (78.0-98.0); Mean Platelet Volume 8.2 fL (7.4-10.4); Platelet Count 261 thou/uL (130-400); RBC Distribution Width 12.5 % (11.5-14.5); Red Blood Cell (RBC) Count 4.34 mill/uL (4.20-5.40)
[2020-09-17] MEDS: Ondansetron PF 4 MG/2 ML Vial IVP PRN (11:44)
[2020-09-17] MEDS: HumaLOG 300 UNITS/3 ML VIAL SC PRN ×2 (11:45→17:09)
[2020-09-17] MEDS: Pantoprazole 40 MG VIAL IVPB SCH (13:24)
[2020-09-17] MEDS: Acetaminophen 325 MG TAB PO PRN (17:11)
[2020-09-17] MEDS: REMDESIVIR 100 MG in Sodium Chloride 0.9% 250 ML 230 ML IV SCH (20:48)
[2020-09-17] MEDS: Melatonin 3 MG TAB PO PRN (20:50)
[2020-09-17] MEDS: Sacubitril 49 MG/Valsartan 51 MG TABLET PO SCH (20:53)
[2020-09-18] MEDS: Benzonatate 100 MG CAP PO SCH ×3 (00:55→16:57)
[2020-09-18] MEDS: Acetaminophen 325 MG TAB PO PRN ×3 (03:33→19:23)
[2020-09-18 05:40] LABS: #Monocytes 0.7 thou/uL (0.11-0.59); #Neutrophils 4.1 thou/uL (1.40-6.50); %Eosinophils 0.2 % (0.0-10.0); %Lymphocytes 16.7 % (21.0-51.0); %Monocytes 12.6 % (0.0-10.0); %Neutrophils 70.5 % (42.0-75.0); Hemoglobin 12.6 g/dL (12.0-16.0); Mean Corpuscular HGB CONC 33.7 g/dL (32.0-36.0); Mean Corpuscular Hemoglobin 30.9 pg (27.0-31.0); Mean Corpuscular Volume 91.7 fL (78.0-98.0); Platelet Count 264 thou/uL (130-400); RBC Distribution Width 12.4 % (11.5-14.5); Red Blood Cell (RBC) Count 4.09 mill/uL (4.20-5.40); White Blood Cell (WBC) Count 5.8 thou/uL (4.8-10.8)
[2020-09-18 05:54] LABS: ALT (SGPT) 20 U/L (8-55); AST (SGOT) 33 U/L (5-34); Albumin 3.5 g/dL (3.4-4.8); Alkaline Phosphatase 71 U/L (40-110); Bilirubin, Direct 0.2 mg/dL (0.1-0.3); Bilirubin, Total 0.4 mg/dL (0.2-1.2); Protein, Total 6.8 g/dL (5.8-8.1)
[2020-09-18 05:56] LABS: ALT (SGPT) 19 U/L (8-55); AST (SGOT) 34 U/L (5-34); Albumin 3.5 g/dL (3.4-4.8); Alkaline Phosphatase 71 U/L (40-110); Anion Gap 15 mmol/L (10-20); BUN (Urea Nitrogen) 36 mg/dL (9.8-20.1); Bilirubin, Total 0.4 mg/dL (0.2-1.2); Calc. Creatinine Clearance 95 mL/min (70-130); Calcium 8.7 mg/dL (7.8-10.44); Carbon Dioxide 23 mmol/L (23-31); Chloride 105 mmol/L (98-107); Globulin 3.4 g/dL (2.4-3.5); Glucose 158 mg/dL (80-115); Potassium 4.2 mmol/L (3.5-5.1); Protein, Total 6.9 g/dL (5.8-8.1); Sodium 139 mmol/L (136-145)
[2020-09-18] MEDS: Carvedilol 6.25 MG TAB PO SCH ×2 (07:45→16:57)
[2020-09-18] MEDS: Aspirin 81 mg Enteric Coated Tablet PO SCH (07:46)
[2020-09-18] MEDS: Ascorbic Acid 500 mg Chewable Tablet PO SCH (07:46)
[2020-09-18] MEDS: Dexamethasone 4 mg/ml Vial SLOW IVP SCH (07:46)
[2020-09-18] MEDS: Amlodipine 5 MG TAB PO SCH ×2 (07:46→21:04)
[2020-09-18] MEDS: hydrALAZINE 25 MG TAB PO SCH ×2 (07:47→21:04)
[2020-09-18] MEDS: Enoxaparin Sodium 40 MG/0.4 ML SYRINGE SC SCH ×2 (07:47→21:04)
[2020-09-18] MEDS: Furosemide 40 MG TAB PO SCH (07:47)
[2020-09-18] MEDS: guaiFENesin ER 600 MG TAB PO SCH ×2 (07:47→21:03)
[2020-09-18] MEDS: Sacubitril 49 MG/Valsartan 51 MG TABLET PO SCH ×2 (07:48→21:04)
[2020-09-18] MEDS: Zinc Sulfate 220 MG CAP PO SCH (07:51)
[2020-09-18] MEDS ORDERED: Furosemide 40 MG/4 ML VIAL SLOW IVP SCH (10:00)
[2020-09-18] MEDS: Ondansetron PF 4 MG/2 ML Vial IVP PRN ×2 (11:10→21:05)
[2020-09-18] MEDS: Furosemide 40 MG/4 ML VIAL SLOW IVP SCH (13:52)
[2020-09-18] MEDS: Pantoprazole 40 MG VIAL IVPB SCH (14:00)
[2020-09-18] MEDS: HumaLOG 300 UNITS/3 ML VIAL SC PRN ×2 (16:58→21:19)
[2020-09-18] MEDS: REMDESIVIR 100 MG in Sodium Chloride 0.9% 250 ML 230 ML IV SCH (21:03)
[2020-09-18] MEDS: Melatonin 3 MG TAB PO PRN (21:04)
[2020-09-19] MEDS: Benzonatate 100 MG CAP PO SCH ×4 (00:32→16:17)
[2020-09-19] MEDS: Zolpidem Tartrate 5 MG TAB PO PRN ×2 (01:18→19:48)
[2020-09-19] MEDS: Acetaminophen 325 MG TAB PO PRN (01:18)
[2020-09-19 05:18] LABS: #Basophils 0.1 thou/uL (0.0-0.2); #Lymphocytes 0.9 thou/uL (1.20-3.40); #Monocytes 0.7 thou/uL (0.11-0.59); #Neutrophils 4.2 thou/uL (1.40-6.50); %Basophils 0.9 % (0.0-1.0); %Eosinophils 0.2 % (0.0-10.0); %Lymphocytes 14.7 % (21.0-51.0); %Monocytes 12.1 % (0.0-10.0); %Neutrophils 72.1 % (42.0-75.0); Hemoglobin 12.3 g/dL (12.0-16.0); Mean Corpuscular HGB CONC 31.7 g/dL (32.0-36.0); Mean Corpuscular Hemoglobin 29.2 pg (27.0-31.0); Mean Corpuscular Volume 92.1 fL (78.0-98.0); Mean Platelet Volume 7.9 fL (7.4-10.4); Platelet Count 244 thou/uL (130-400); RBC Distribution Width 12.4 % (11.5-14.5); Red Blood Cell (RBC) Count 4.19 mill/uL (4.20-5.40); White Blood Cell (WBC) Count 5.9 thou/uL (4.8-10.8)
[2020-09-19] MEDS: Furosemide 40 MG/4 ML VIAL SLOW IVP SCH ×2 (05:23→13:40)
[2020-09-19 05:47] LABS: Anion Gap 16 mmol/L (10-20); BUN (Urea Nitrogen) 35 mg/dL (9.8-20.1); Calc. Creatinine Clearance 92 mL/min (70-130); Calcium 8.6 mg/dL (7.8-10.44); Carbon Dioxide 21 mmol/L (23-31); Chloride 103 mmol/L (98-107); Glucose 172 mg/dL (80-115); Phosphorus 3.1 mg/dL (2.3-4.7); Sodium 136 mmol/L (136-145)
[2020-09-19] MEDS: HumaLOG 300 UNITS/3 ML VIAL SC PRN ×2 (05:57→16:23)
[2020-09-19] MEDS: Sacubitril 49 MG/Valsartan 51 MG TABLET PO SCH ×3 (08:08→20:54)
[2020-09-19] MEDS: Aspirin 81 mg Enteric Coated Tablet PO SCH (08:09)
[2020-09-19] MEDS: Enoxaparin Sodium 40 MG/0.4 ML SYRINGE SC SCH ×2 (08:09→19:48)
[2020-09-19] MEDS: hydrALAZINE 25 MG TAB PO SCH ×3 (08:09→20:54)
[2020-09-19] MEDS: Amlodipine 5 MG TAB PO SCH ×3 (08:09→20:53)
[2020-09-19] MEDS: guaiFENesin ER 600 MG TAB PO SCH ×2 (08:09→19:49)
[2020-09-19] MEDS: Zinc Sulfate 220 MG CAP PO SCH (08:10)
[2020-09-19] MEDS: Ascorbic Acid 500 mg Chewable Tablet PO SCH (08:10)
[2020-09-19] MEDS: Dexamethasone 4 mg/ml Vial SLOW IVP SCH (08:10)
[2020-09-19] MEDS: Carvedilol 6.25 MG TAB PO SCH ×2 (08:10→16:16)
[2020-09-19] MEDS: Ondansetron PF 4 MG/2 ML Vial IVP PRN (08:12)
[2020-09-19] MEDS: NPH, Human Insulin Isophane 300 UNIT/3 ML VIAL SC SCH ×2 (13:39→22:04)
[2020-09-19] MEDS: Pantoprazole 40 MG VIAL IVPB SCH (13:40)
[2020-09-19] MEDS: REMDESIVIR 100 MG in Sodium Chloride 0.9% 250 ML 230 ML IV SCH (19:49)
[2020-09-20] MEDS: Sacubitril 49 MG/Valsartan 51 MG TABLET PO SCH ×3 (00:14→19:53)
[2020-09-20] MEDS: Amlodipine 5 MG TAB PO SCH ×3 (00:14→19:53)
[2020-09-20] MEDS: hydrALAZINE 25 MG TAB PO SCH ×3 (00:14→19:54)
[2020-09-20] MEDS: Benzonatate 100 MG CAP PO SCH ×3 (00:15→17:02)
[2020-09-20] MEDS: Furosemide 40 MG/4 ML VIAL SLOW IVP SCH (05:19)
[2020-09-20 05:34] LABS: ALT (SGPT) 21 U/L (8-55); AST (SGOT) 25 U/L (5-34); Albumin 3.3 g/dL (3.4-4.8); Alkaline Phosphatase 73 U/L (40-110); Anion Gap 14 mmol/L (10-20); BUN (Urea Nitrogen) 33 mg/dL (9.8-20.1); Bilirubin, Total 0.5 mg/dL (0.2-1.2); CRP (Inflammatory) 2.06 mg/dL (= or < 0.5); Calc. Creatinine Clearance 99 mL/min (70-130); Calcium 8.7 mg/dL (7.8-10.44); Carbon Dioxide 24 mmol/L (23-31); Chloride 101 mmol/L (98-107); Globulin 3.2 g/dL (2.4-3.5); Glucose 163 mg/dL (80-115); Potassium 3.8 mmol/L (3.5-5.1); Protein, Total 6.5 g/dL (5.8-8.1); Sodium 135 mmol/L (136-145)
[2020-09-20] MEDS: HumaLOG 300 UNITS/3 ML VIAL SC PRN ×4 (05:56→19:56)
[2020-09-20 07:15] LABS: Hemoglobin 12.6 g/dL (12.0-16.0); MDiff Complete? YES; Mean Corpuscular HGB CONC 33.2 g/dL (32.0-36.0); Mean Corpuscular Hemoglobin 29.9 pg (27.0-31.0); Mean Corpuscular Volume 90.1 fL (78.0-98.0); Mean Platelet Volume 8.1 fL (7.4-10.4); Platelet Count 255 thou/uL (130-400); RBC Distribution Width 12.5 % (11.5-14.5); White Blood Cell (WBC) Count 8.8 thou/uL (4.8-10.8)
[2020-09-20 07:16] LABS: Band 1 % (5-11); Lymphocytes 10 % (21-51); Monocytes 2 % (0-10); Neutrophil 86 % (42-75); Platelet Morphology Comment Appears Adequate; RBC Morphology Normal; Reactive Lymphocytes 1 % (0-10)
[2020-09-20] MEDS: Carvedilol 6.25 MG TAB PO SCH ×2 (08:01→17:02)
[2020-09-20] MEDS: Aspirin 81 mg Enteric Coated Tablet PO SCH (08:01)
[2020-09-20] MEDS: Zinc Sulfate 220 MG CAP PO SCH (08:01)
[2020-09-20] MEDS: Ascorbic Acid 500 mg Chewable Tablet PO SCH (08:02)
[2020-09-20] MEDS: Furosemide 40 MG TAB PO SCH ×2 (08:02→14:39)
[2020-09-20] MEDS: NPH, Human Insulin Isophane 300 UNIT/3 ML VIAL SC SCH ×2 (08:04→19:54)
[2020-09-20] MEDS: guaiFENesin ER 600 MG TAB PO SCH ×2 (08:04→19:53)
[2020-09-20] MEDS: Dexamethasone 4 mg/ml Vial SLOW IVP SCH (08:04)
[2020-09-20] MEDS: Enoxaparin Sodium 40 MG/0.4 ML SYRINGE SC SCH (08:04)
[2020-09-20] MEDS: Acetaminophen 325 MG TAB PO PRN ×3 (08:12→20:34)
[2020-09-20] MEDS ORDERED: Furosemide 20 MG TAB PO SCH (09:00)
[2020-09-20] MEDS: Pantoprazole 40 MG VIAL IVPB SCH (14:40)
[2020-09-20] MEDS: Ondansetron PF 4 MG/2 ML Vial IVP PRN (14:40)
[2020-09-20] MEDS ORDERED: Ivermectin 3 MG TAB PO SCH (16:30)
[2020-09-20] MEDS: Zolpidem Tartrate 5 MG TAB PO PRN (19:53)
[2020-09-20] MEDS: Colchicine 0.6 MG TAB PO SCH (19:53)
[2020-09-20] MEDS: Enoxaparin Sodium 60 MG/0.6 ML SYRINGE SC SCH (19:54)
[2020-09-21] MEDS: Melatonin 3 MG TAB PO PRN (01:13)
[2020-09-21] MEDS: Acetaminophen 325 MG TAB PO PRN ×2 (01:13→20:59)
[2020-09-21] MEDS: Benzonatate 100 MG CAP PO SCH ×3 (01:13→17:59)
[2020-09-21] MEDS: Sacubitril 49 MG/Valsartan 51 MG TABLET PO SCH ×2 (10:10→21:06)
[2020-09-21] MEDS: Furosemide 40 MG TAB PO SCH ×2 (10:10→15:02)
[2020-09-21] MEDS: hydrALAZINE 25 MG TAB PO SCH ×2 (10:10→20:52)
[2020-09-21] MEDS: Aspirin 81 mg Enteric Coated Tablet PO SCH (10:11)
[2020-09-21] MEDS: Ascorbic Acid 500 mg Chewable Tablet PO SCH (10:11)
[2020-09-21] MEDS: Amlodipine 5 MG TAB PO SCH ×2 (10:11→20:52)
[2020-09-21] MEDS: Zinc Sulfate 220 MG CAP PO SCH (10:11)
[2020-09-21] MEDS: Colchicine 0.6 MG TAB PO SCH ×2 (10:11→20:52)
[2020-09-21] MEDS: Carvedilol 6.25 MG TAB PO SCH ×2 (10:11→17:58)
[2020-09-21] MEDS: Dexamethasone 10 MG/ML VIAL SLOW IVP SCH (10:12)
[2020-09-21] MEDS: Enoxaparin Sodium 60 MG/0.6 ML SYRINGE SC SCH ×2 (10:12→20:52)
[2020-09-21] MEDS: NPH, Human Insulin Isophane 300 UNIT/3 ML VIAL SC SCH ×2 (10:12→20:55)
[2020-09-21] MEDS: guaiFENesin ER 600 MG TAB PO SCH ×2 (10:12→20:52)
[2020-09-21] MEDS: HumaLOG 300 UNITS/3 ML VIAL SC PRN ×3 (11:57→20:48)
[2020-09-21] MEDS: Pantoprazole 40 MG VIAL IVPB SCH (15:02)
[2020-09-21] MEDS: Zolpidem Tartrate 5 MG TAB PO PRN (21:25)
[2020-09-22] MEDS: Benzonatate 100 MG CAP PO SCH ×3 (00:37→15:55)
[2020-09-22 05:01] LABS: #Lymphocytes 0.7 thou/uL (1.20-3.40); #Monocytes 0.5 thou/uL (0.11-0.59); #Neutrophils 13.9 thou/uL (1.40-6.50); %Basophils 0.1 % (0.0-1.0); %Eosinophils 0.1 % (0.0-10.0); %Lymphocytes 4.9 % (21.0-51.0); %Monocytes 3.5 % (0.0-10.0); %Neutrophils 91.4 % (42.0-75.0); Hemoglobin 13.5 g/dL (12.0-16.0); Mean Corpuscular HGB CONC 33.4 g/dL (32.0-36.0); Mean Corpuscular Hemoglobin 29.9 pg (27.0-31.0); Mean Corpuscular Volume 89.5 fL (78.0-98.0); Mean Platelet Volume 8.3 fL (7.4-10.4); Platelet Count 327 thou/uL (130-400); RBC Distribution Width 12.3 % (11.5-14.5); Red Blood Cell (RBC) Count 4.52 mill/uL (4.20-5.40); White Blood Cell (WBC) Count 15.2 thou/uL (4.8-10.8)
[2020-09-22 05:16] LABS: Anion Gap 17 mmol/L (10-20); BUN (Urea Nitrogen) 31 mg/dL (9.8-20.1); CRP (Inflammatory) 0.72 mg/dL (= or < 0.5); Calc. Creatinine Clearance 98 mL/min (70-130); Calcium 8.9 mg/dL (7.8-10.44); Carbon Dioxide 22 mmol/L (23-31); Chloride 100 mmol/L (98-107); Glucose 128 mg/dL (80-115); Magnesium 2.2 mg/dL (1.6-2.6); Potassium 3.7 mmol/L (3.5-5.1); Sodium 135 mmol/L (136-145)
[2020-09-22] MEDS: Amlodipine 5 MG TAB PO SCH ×2 (09:42→19:57)
[2020-09-22] MEDS: Carvedilol 6.25 MG TAB PO SCH ×2 (09:42→15:55)
[2020-09-22] MEDS: Ascorbic Acid 500 mg Chewable Tablet PO SCH (09:43)
[2020-09-22] MEDS: Aspirin 81 mg Enteric Coated Tablet PO SCH (09:43)
[2020-09-22] MEDS: Dexamethasone 10 MG/ML VIAL SLOW IVP SCH (09:44)
[2020-09-22] MEDS: guaiFENesin ER 600 MG TAB PO SCH ×2 (09:44→19:58)
[2020-09-22] MEDS: Furosemide 40 MG TAB PO SCH ×2 (09:44→13:49)
[2020-09-22] MEDS: Enoxaparin Sodium 60 MG/0.6 ML SYRINGE SC SCH ×2 (09:44→19:57)
[2020-09-22] MEDS: Colchicine 0.6 MG TAB PO SCH ×2 (09:44→19:57)
[2020-09-22] MEDS: NPH, Human Insulin Isophane 300 UNIT/3 ML VIAL SC SCH ×2 (09:45→22:49)
[2020-09-22] MEDS: hydrALAZINE 25 MG TAB PO SCH ×2 (09:45→19:58)
[2020-09-22] MEDS: Sacubitril 49 MG/Valsartan 51 MG TABLET PO SCH ×2 (09:45→19:58)
[2020-09-22] MEDS: Zinc Sulfate 220 MG CAP PO SCH (09:46)
[2020-09-22] MEDS: HumaLOG 300 UNITS/3 ML VIAL SC PRN ×2 (11:24→16:57)
[2020-09-22] MEDS: Pantoprazole 40 MG VIAL IVPB SCH (13:49)
[2020-09-22] MEDS ORDERED: Furosemide 20 MG/2 ML VIAL SLOW IVP SCH (14:30)
[2020-09-22] MEDS ORDERED: Potassium Chloride 20 MEQ TAB PO SCH (17:00)
[2020-09-22] MEDS: Zolpidem Tartrate 5 MG TAB PO PRN (20:00)
[2020-09-23] MEDS: Benzonatate 100 MG CAP PO SCH ×3 (00:39→17:11)
[2020-09-23] MEDS: Ondansetron PF 4 MG/2 ML Vial IVP PRN (00:48)
[2020-09-23 04:55] LABS: #Lymphocytes 0.7 thou/uL (1.20-3.40); #Monocytes 0.5 thou/uL (0.11-0.59); %Basophils 0.1 % (0.0-1.0); %Eosinophils 0.1 % (0.0-10.0); %Lymphocytes 4.6 % (21.0-51.0); %Neutrophils 92.3 % (42.0-75.0); Hemoglobin 13.9 g/dL (12.0-16.0); Mean Corpuscular HGB CONC 34.5 g/dL (32.0-36.0); Mean Corpuscular Hemoglobin 30.8 pg (27.0-31.0); Mean Corpuscular Volume 89.5 fL (78.0-98.0); Mean Platelet Volume 8.3 fL (7.4-10.4); Platelet Count 323 thou/uL (130-400); RBC Distribution Width 12.4 % (11.5-14.5); Red Blood Cell (RBC) Count 4.51 mill/uL (4.20-5.40); White Blood Cell (WBC) Count 15.2 thou/uL (4.8-10.8)
[2020-09-23 05:23] LABS: ALT (SGPT) 17 U/L (8-55); AST (SGOT) 23 U/L (5-34); Albumin 3.4 g/dL (3.4-4.8); Alkaline Phosphatase 88 U/L (40-110); Anion Gap 15 mmol/L (10-20); BUN (Urea Nitrogen) 27 mg/dL (9.8-20.1); Bilirubin, Total 0.6 mg/dL (0.2-1.2); CRP (Inflammatory) Less than 0.50 mg/dL (= or < 0.5); Calc. Creatinine Clearance 99 mL/min (70-130); Calcium 8.6 mg/dL (7.8-10.44); Carbon Dioxide 23 mmol/L (23-31); Chloride 100 mmol/L (98-107); Globulin 3.1 g/dL (2.4-3.5); Glucose 121 mg/dL (80-115); Potassium 3.2 mmol/L (3.5-5.1); Protein, Total 6.5 g/dL (5.8-8.1); Sodium 135 mmol/L (136-145)
[2020-09-23] MEDS: Carvedilol 6.25 MG TAB PO SCH ×2 (07:49→17:12)
[2020-09-23] MEDS: Ascorbic Acid 500 mg Chewable Tablet PO SCH (07:55)
[2020-09-23] MEDS: Amlodipine 5 MG TAB PO SCH ×2 (07:55→20:27)
[2020-09-23] MEDS: Aspirin 81 mg Enteric Coated Tablet PO SCH (07:55)
[2020-09-23] MEDS: Colchicine 0.6 MG TAB PO SCH ×2 (07:55→20:29)
[2020-09-23] MEDS: Furosemide 40 MG TAB PO SCH ×2 (07:56→14:44)
[2020-09-23] MEDS: Enoxaparin Sodium 60 MG/0.6 ML SYRINGE SC SCH ×2 (07:56→20:28)
[2020-09-23] MEDS: guaiFENesin ER 600 MG TAB PO SCH ×2 (07:56→20:28)
[2020-09-23] MEDS: hydrALAZINE 25 MG TAB PO SCH ×2 (07:57→20:28)
[2020-09-23] MEDS: Dexamethasone 10 MG/ML VIAL SLOW IVP SCH (07:57)
[2020-09-23] MEDS: NPH, Human Insulin Isophane 300 UNIT/3 ML VIAL SC SCH ×2 (07:58→21:16)
[2020-09-23] MEDS: Sacubitril 49 MG/Valsartan 51 MG TABLET PO SCH ×2 (08:00→20:29)
[2020-09-23] MEDS: Ondansetron ODT 4 MG TAB PO PRN (08:01)
[2020-09-23] MEDS: Zinc Sulfate 220 MG CAP PO SCH (08:01)
[2020-09-23] MEDS ORDERED: Potassium Chloride 20 MEQ TAB PO SCH ×2 (09:00→17:00)
[2020-09-23] MEDS: HumaLOG 300 UNITS/3 ML VIAL SC PRN ×2 (11:36→21:14)
[2020-09-23] MEDS: Acetaminophen 325 MG TAB PO PRN (17:25)
[2020-09-23] MEDS: HYDROcodone/Acetaminophen 5/325 mg Tablet PO PRN (20:29)
[2020-09-23] MEDS: Loperamide HCl 2 MG CAP PO PRN (20:40)
[2020-09-23] MEDS: Zolpidem Tartrate 5 MG TAB PO PRN (21:19)
[2020-09-24] MEDS: Benzonatate 100 MG CAP PO SCH ×4 (01:15→16:47)
[2020-09-24 04:51] LABS: #Lymphocytes 0.5 thou/uL (1.20-3.40); #Monocytes 0.4 thou/uL (0.11-0.59); #Neutrophils 12.4 thou/uL (1.40-6.50); %Basophils 0.1 % (0.0-1.0); %Eosinophils 0.2 % (0.0-10.0); %Lymphocytes 3.6 % (21.0-51.0); %Monocytes 2.9 % (0.0-10.0); %Neutrophils 93.3 % (42.0-75.0); Hemoglobin 13.2 g/dL (12.0-16.0); Mean Corpuscular HGB CONC 33.9 g/dL (32.0-36.0); Mean Corpuscular Hemoglobin 30.5 pg (27.0-31.0); Mean Platelet Volume 8.4 fL (7.4-10.4); Platelet Count 261 thou/uL (130-400); RBC Distribution Width 12.5 % (11.5-14.5); Red Blood Cell (RBC) Count 4.32 mill/uL (4.20-5.40); White Blood Cell (WBC) Count 13.3 thou/uL (4.8-10.8)
[2020-09-24 05:20] LABS: ALT (SGPT) 20 U/L (8-55); AST (SGOT) 26 U/L (5-34); Albumin 3.1 g/dL (3.4-4.8); Alkaline Phosphatase 81 U/L (40-110); Anion Gap 15 mmol/L (10-20); BUN (Urea Nitrogen) 31 mg/dL (9.8-20.1); Bilirubin, Total 0.6 mg/dL (0.2-1.2); CRP (Inflammatory) Less than 0.50 mg/dL (= or < 0.5); Calc. Creatinine Clearance 99 mL/min (70-130); Calcium 8.6 mg/dL (7.8-10.44); Carbon Dioxide 18 mmol/L (23-31); Chloride 104 mmol/L (98-107); Glucose 116 mg/dL (80-115); Magnesium 2.1 mg/dL (1.6-2.6); Protein, Total 6.1 g/dL (5.8-8.1); Sodium 133 mmol/L (136-145)
[2020-09-24] MEDS: Loperamide HCl 2 MG CAP PO PRN ×2 (06:07→09:33)
[2020-09-24] MEDS: Carvedilol 6.25 MG TAB PO SCH ×2 (08:59→16:47)
[2020-09-24] MEDS: Aspirin 81 mg Enteric Coated Tablet PO SCH (09:00)
[2020-09-24] MEDS: Amlodipine 5 MG TAB PO SCH ×2 (09:00→22:00)
[2020-09-24] MEDS: Ascorbic Acid 500 mg Chewable Tablet PO SCH (09:00)
[2020-09-24] MEDS: Colchicine 0.6 MG TAB PO SCH ×2 (09:00→22:00)
[2020-09-24] MEDS: Dexamethasone 10 MG/ML VIAL SLOW IVP SCH (09:01)
[2020-09-24] MEDS: Furosemide 40 MG TAB PO SCH ×2 (09:01→13:50)
[2020-09-24] MEDS: Enoxaparin Sodium 60 MG/0.6 ML SYRINGE SC SCH ×2 (09:01→22:01)
[2020-09-24] MEDS: guaiFENesin ER 600 MG TAB PO SCH ×2 (09:01→21:59)
[2020-09-24] MEDS: hydrALAZINE 25 MG TAB PO SCH ×2 (09:01→22:01)
[2020-09-24] MEDS: Sacubitril 49 MG/Valsartan 51 MG TABLET PO SCH ×2 (09:02→21:59)
[2020-09-24] MEDS: Zinc Sulfate 220 MG CAP PO SCH (09:03)
[2020-09-24] MEDS: NPH, Human Insulin Isophane 300 UNIT/3 ML VIAL SC SCH ×2 (09:07→22:02)
[2020-09-24] MEDS: HYDROcodone/Acetaminophen 5/325 mg Tablet PO PRN ×4 (09:33→22:32)
[2020-09-24] MEDS: HumaLOG 300 UNITS/3 ML VIAL SC PRN (17:49)
[2020-09-24] MEDS: Zolpidem Tartrate 5 MG TAB PO PRN (22:00)
[2020-09-25 04:48] LABS: #Eosinphils 0.1 thou/uL (0.0-0.7); #Lymphocytes 0.4 thou/uL (1.20-3.40); #Monocytes 0.4 thou/uL (0.11-0.59); #Neutrophils 11.3 thou/uL (1.40-6.50); %Basophils 0.1 % (0.0-1.0); %Eosinophils 0.5 % (0.0-10.0); %Lymphocytes 3.5 % (21.0-51.0); %Monocytes 3.6 % (0.0-10.0); %Neutrophils 92.3 % (42.0-75.0); Hemoglobin 13.6 g/dL (12.0-16.0); Mean Corpuscular HGB CONC 34.7 g/dL (32.0-36.0); Mean Corpuscular Hemoglobin 31.3 pg (27.0-31.0); Mean Corpuscular Volume 90.3 fL (78.0-98.0); Mean Platelet Volume 8.5 fL (7.4-10.4); Platelet Count 241 thou/uL (130-400); RBC Distribution Width 12.5 % (11.5-14.5); Red Blood Cell (RBC) Count 4.34 mill/uL (4.20-5.40); White Blood Cell (WBC) Count 12.2 thou/uL (4.8-10.8)
[2020-09-25 05:11] LABS: Anion Gap 15 mmol/L (10-20); BUN (Urea Nitrogen) 29 mg/dL (9.8-20.1); CRP (Inflammatory) Less than 0.50 mg/dL (= or < 0.5); Calc. Creatinine Clearance 97 mL/min (70-130); Calcium 8.7 mg/dL (7.8-10.44); Carbon Dioxide 22 mmol/L (23-31); Chloride 103 mmol/L (98-107); Glucose 113 mg/dL (80-115); Potassium 4.5 mmol/L (3.5-5.1); Sodium 135 mmol/L (136-145)
[2020-09-25] MEDS: Carvedilol 6.25 MG TAB PO SCH ×2 (10:07→17:23)
[2020-09-25] MEDS: Benzonatate 100 MG CAP PO SCH ×2 (10:08→17:22)
[2020-09-25] MEDS: Amlodipine 5 MG TAB PO SCH ×2 (10:08→21:51)
[2020-09-25] MEDS: Ascorbic Acid 500 mg Chewable Tablet PO SCH (10:08)
[2020-09-25] MEDS: Aspirin 81 mg Enteric Coated Tablet PO SCH (10:08)
[2020-09-25] MEDS: guaiFENesin ER 600 MG TAB PO SCH ×2 (10:09→21:53)
[2020-09-25] MEDS: Dexamethasone 10 MG/ML VIAL SLOW IVP SCH (10:09)
[2020-09-25] MEDS: hydrALAZINE 25 MG TAB PO SCH ×2 (10:09→21:54)
[2020-09-25] MEDS: Colchicine 0.6 MG TAB PO SCH (10:09)
[2020-09-25] MEDS: Furosemide 40 MG TAB PO SCH ×2 (10:09→14:37)
[2020-09-25] MEDS: Enoxaparin Sodium 60 MG/0.6 ML SYRINGE SC SCH ×2 (10:09→21:53)
[2020-09-25] MEDS: Sacubitril 49 MG/Valsartan 51 MG TABLET PO SCH ×2 (10:10→21:53)
[2020-09-25] MEDS: Zinc Sulfate 220 MG CAP PO SCH (10:10)
[2020-09-25] MEDS: HYDROcodone/Acetaminophen 5/325 mg Tablet PO PRN ×3 (10:11→22:05)
[2020-09-25] MEDS: NPH, Human Insulin Isophane 300 UNIT/3 ML VIAL SC SCH ×2 (10:14→22:01)
[2020-09-25 15:18] LABS: Hemoglobin A1c 7.7 % (4.0-6.0)
[2020-09-25] MEDS: HumaLOG 300 UNITS/3 ML VIAL SC PRN (17:19)
[2020-09-26] MEDS: Benzonatate 100 MG CAP PO SCH ×3 (01:36→15:01)
[2020-09-26] MEDS: HYDROcodone/Acetaminophen 5/325 mg Tablet PO PRN ×4 (02:33→19:01)
[2020-09-26] MEDS: Zolpidem Tartrate 5 MG TAB PO PRN ×2 (02:33→21:23)
[2020-09-26] MEDS: Carvedilol 6.25 MG TAB PO SCH ×2 (09:41→15:01)
[2020-09-26] MEDS: Amlodipine 5 MG TAB PO SCH ×2 (09:42→21:23)
[2020-09-26] MEDS: Ascorbic Acid 500 mg Chewable Tablet PO SCH (09:43)
[2020-09-26] MEDS: Aspirin 81 mg Enteric Coated Tablet PO SCH (09:43)
[2020-09-26] MEDS: Enoxaparin Sodium 60 MG/0.6 ML SYRINGE SC SCH ×2 (09:43→21:23)
[2020-09-26] MEDS: Colchicine 0.6 MG TAB PO SCH (09:43)
[2020-09-26] MEDS: hydrALAZINE 25 MG TAB PO SCH ×2 (09:44→21:23)
[2020-09-26] MEDS: Sacubitril 49 MG/Valsartan 51 MG TABLET PO SCH ×2 (09:44→21:23)
[2020-09-26] MEDS: Furosemide 40 MG TAB PO SCH ×2 (09:44→15:00)
[2020-09-26] MEDS: guaiFENesin ER 600 MG TAB PO SCH ×2 (09:44→21:23)
[2020-09-26] MEDS: Zinc Sulfate 220 MG CAP PO SCH (09:45)
[2020-09-26] MEDS: Dexamethasone 10 MG/ML VIAL SLOW IVP SCH (09:49)
[2020-09-26] MEDS: NPH, Human Insulin Isophane 300 UNIT/3 ML VIAL SC SCH ×2 (15:02→21:24)
[2020-09-26] MEDS ORDERED: Furosemide 40 MG/4 ML VIAL IVP SCH (15:51)
[2020-09-26] MEDS: HumaLOG 300 UNITS/3 ML VIAL SC PRN (17:49)
[2020-09-27] MEDS: HYDROcodone/Acetaminophen 5/325 mg Tablet PO PRN ×4 (01:27→20:59)
[2020-09-27] MEDS: Benzonatate 100 MG CAP PO SCH ×3 (02:07→17:43)
[2020-09-27] MEDS: Enoxaparin Sodium 60 MG/0.6 ML SYRINGE SC SCH ×2 (09:03→20:59)
[2020-09-27] MEDS: Ascorbic Acid 500 mg Chewable Tablet PO SCH (09:03)
[2020-09-27] MEDS: Carvedilol 6.25 MG TAB PO SCH ×2 (09:04→17:43)
[2020-09-27] MEDS: Aspirin 81 mg Enteric Coated Tablet PO SCH (09:04)
[2020-09-27] MEDS: Amlodipine 5 MG TAB PO SCH ×2 (09:04→20:59)
[2020-09-27] MEDS: Zinc Sulfate 220 MG CAP PO SCH (09:04)
[2020-09-27] MEDS: Furosemide 40 MG TAB PO SCH ×2 (09:05→15:11)
[2020-09-27] MEDS: Loperamide HCl 2 MG CAP PO PRN (09:05)
[2020-09-27] MEDS: guaiFENesin ER 600 MG TAB PO SCH ×2 (09:05→20:59)
[2020-09-27] MEDS: hydrALAZINE 25 MG TAB PO SCH ×2 (09:05→20:59)
[2020-09-27] MEDS: Dexamethasone 10 MG/ML VIAL SLOW IVP SCH (09:06)
[2020-09-27] MEDS: Sacubitril 49 MG/Valsartan 51 MG TABLET PO SCH ×2 (09:06→20:59)
[2020-09-27] MEDS: Colchicine 0.6 MG TAB PO SCH (09:06)
[2020-09-27] MEDS: NPH, Human Insulin Isophane 300 UNIT/3 ML VIAL SC SCH ×2 (09:16→21:09)
[2020-09-27 09:20] LABS: #Eosinphils 0.1 thou/uL (0.0-0.7); #Lymphocytes 0.4 thou/uL (1.20-3.40); #Monocytes 0.3 thou/uL (0.11-0.59); %Eosinophils 0.5 % (0.0-10.0); %Lymphocytes 2.9 % (21.0-51.0); %Monocytes 2.5 % (0.0-10.0); Hemoglobin 13.2 g/dL (12.0-16.0); Mean Corpuscular Hemoglobin 29.9 pg (27.0-31.0); Mean Corpuscular Volume 90.7 fL (78.0-98.0); Mean Platelet Volume 9.4 fL (7.4-10.4); Platelet Count 225 thou/uL (130-400); RBC Distribution Width 12.5 % (11.5-14.5); Red Blood Cell (RBC) Count 4.42 mill/uL (4.20-5.40); White Blood Cell (WBC) Count 12.7 thou/uL (4.8-10.8)
[2020-09-27] MEDS: Furosemide 40 MG/4 ML VIAL IVP SCH ×2 (12:39→18:30)
[2020-09-27] MEDS: HumaLOG 300 UNITS/3 ML VIAL SC PRN (17:43)
[2020-09-27] MEDS: Zolpidem Tartrate 5 MG TAB PO PRN (20:59)
[2020-09-28] MEDS: Benzonatate 100 MG CAP PO SCH ×3 (01:45→16:54)
[2020-09-28] MEDS: HYDROcodone/Acetaminophen 5/325 mg Tablet PO PRN ×5 (01:51→21:21)
[2020-09-28] MEDS: Enoxaparin Sodium 60 MG/0.6 ML SYRINGE SC SCH ×2 (09:37→21:21)
[2020-09-28] MEDS: Carvedilol 6.25 MG TAB PO SCH ×2 (09:38→16:54)
[2020-09-28] MEDS: hydrALAZINE 25 MG TAB PO SCH ×2 (09:39→21:20)
[2020-09-28] MEDS: Aspirin 81 mg Enteric Coated Tablet PO SCH (09:40)
[2020-09-28] MEDS: Zinc Sulfate 220 MG CAP PO SCH (09:40)
[2020-09-28] MEDS: Amlodipine 5 MG TAB PO SCH ×2 (09:41→21:20)
[2020-09-28] MEDS: Furosemide 40 MG TAB PO SCH ×2 (09:41→13:34)
[2020-09-28] MEDS: NPH, Human Insulin Isophane 300 UNIT/3 ML VIAL SC SCH ×2 (09:42→21:22)
[2020-09-28] MEDS: Sacubitril 49 MG/Valsartan 51 MG TABLET PO SCH ×2 (10:03→22:29)
[2020-09-28] MEDS: guaiFENesin ER 600 MG TAB PO SCH ×2 (10:03→21:20)
[2020-09-28] MEDS: Colchicine 0.6 MG TAB PO SCH (10:03)
[2020-09-28] MEDS: Ascorbic Acid 500 mg Chewable Tablet PO SCH (10:03)
[2020-09-28] MEDS: Dexamethasone 10 MG/ML VIAL SLOW IVP SCH (10:08)
[2020-09-28] MEDS: HumaLOG 300 UNITS/3 ML VIAL SC PRN ×2 (12:30→17:19)
[2020-09-28] MEDS ORDERED: Furosemide 40 MG/4 ML VIAL SLOW IVP SCH (13:00)
[2020-09-28] MEDS: methylPREDNISolone Sod Succ 40 MG VIAL IVP SCH (18:11)
[2020-09-28] MEDS: Zolpidem Tartrate 5 MG TAB PO PRN (21:20)
[2020-09-29] MEDS: methylPREDNISolone Sod Succ 40 MG VIAL IVP SCH ×4 (00:35→17:04)
[2020-09-29] MEDS: Benzonatate 100 MG CAP PO SCH ×3 (00:35→15:15)
[2020-09-29] MEDS: HYDROcodone/Acetaminophen 5/325 mg Tablet PO PRN ×5 (02:36→20:33)
[2020-09-29] MEDS: Amlodipine 5 MG TAB PO SCH ×2 (08:29→21:08)
[2020-09-29] MEDS: Enoxaparin Sodium 60 MG/0.6 ML SYRINGE SC SCH ×2 (08:29→20:32)
[2020-09-29] MEDS: hydrALAZINE 25 MG TAB PO SCH ×2 (08:29→20:34)
[2020-09-29] MEDS: Zinc Sulfate 220 MG CAP PO SCH (08:29)
[2020-09-29] MEDS: Ascorbic Acid 500 mg Chewable Tablet PO SCH (08:29)
[2020-09-29] MEDS: Aspirin 81 mg Enteric Coated Tablet PO SCH (08:30)
[2020-09-29] MEDS: guaiFENesin ER 600 MG TAB PO SCH ×2 (08:30→20:33)
[2020-09-29] MEDS: Carvedilol 6.25 MG TAB PO SCH ×2 (08:30→16:33)
[2020-09-29] MEDS: Furosemide 40 MG TAB PO SCH ×2 (08:30→13:37)
[2020-09-29] MEDS: NPH, Human Insulin Isophane 300 UNIT/3 ML VIAL SC SCH ×2 (08:31→20:35)
[2020-09-29] MEDS: HumaLOG 300 UNITS/3 ML VIAL SC PRN ×2 (08:32→12:15)
[2020-09-29 08:35] LABS: #Lymphocytes 0.3 thou/uL (1.20-3.40); #Monocytes 0.2 thou/uL (0.11-0.59); %Basophils 0.1 % (0.0-1.0); %Eosinophils 0.1 % (0.0-10.0); %Lymphocytes 2.7 % (21.0-51.0); %Monocytes 1.2 % (0.0-10.0); %Neutrophils 95.9 % (42.0-75.0); Hemoglobin 13.3 g/dL (12.0-16.0); Mean Corpuscular HGB CONC 33.8 g/dL (32.0-36.0); Mean Corpuscular Hemoglobin 30.6 pg (27.0-31.0); Mean Corpuscular Volume 90.5 fL (78.0-98.0); Mean Platelet Volume 8.8 fL (7.4-10.4); Platelet Count 237 thou/uL (130-400); RBC Distribution Width 12.8 % (11.5-14.5); Red Blood Cell (RBC) Count 4.35 mill/uL (4.20-5.40); White Blood Cell (WBC) Count 12.5 thou/uL (4.8-10.8)
[2020-09-29] MEDS: Colchicine 0.6 MG TAB PO SCH (08:41)
[2020-09-29] MEDS: Sacubitril 49 MG/Valsartan 51 MG TABLET PO SCH ×2 (08:41→20:34)
[2020-09-29 08:49] LABS: Anion Gap 18 mmol/L (10-20); BUN (Urea Nitrogen) 30 mg/dL (9.8-20.1); Calc. Creatinine Clearance 101 mL/min (70-130); Calcium 9.3 mg/dL (7.8-10.44); Carbon Dioxide 25 mmol/L (23-31); Chloride 99 mmol/L (98-107); Glucose 170 mg/dL (80-115); Magnesium 2.3 mg/dL (1.6-2.6); Phosphorus 3.7 mg/dL (2.3-4.7); Sodium 138 mmol/L (136-145)
[2020-09-29] MEDS ORDERED: Furosemide 20 MG/2 ML VIAL SLOW IVP SCH (12:30)
[2020-09-29] MEDS: Zolpidem Tartrate 5 MG TAB PO PRN (20:33)
[2020-09-30] MEDS: methylPREDNISolone Sod Succ 40 MG VIAL IVP SCH ×4 (00:38→17:58)
[2020-09-30] MEDS: HYDROcodone/Acetaminophen 5/325 mg Tablet PO PRN ×5 (00:38→18:11)
[2020-09-30] MEDS: Benzonatate 100 MG CAP PO SCH ×3 (00:39→17:53)
[2020-09-30 05:40] LABS: Anion Gap 16 mmol/L (10-20); BUN (Urea Nitrogen) 30 mg/dL (9.8-20.1); Calc. Creatinine Clearance 110 mL/min (70-130); Calcium 8.7 mg/dL (7.8-10.44); Carbon Dioxide 23 mmol/L (23-31); Chloride 99 mmol/L (98-107); Glucose 162 mg/dL (80-115); Potassium 3.2 mmol/L (3.5-5.1); Sodium 135 mmol/L (136-145)
[2020-09-30] MEDS: HumaLOG 300 UNITS/3 ML VIAL SC PRN ×3 (06:37→21:00)
[2020-09-30] MEDS ORDERED: Potassium Chloride 20 MEQ TAB PO SCH (07:30)
[2020-09-30 08:05] LABS: #Lymphocytes 0.4 thou/uL (1.20-3.40); #Monocytes 0.5 thou/uL (0.11-0.59); %Eosinophils 0.1 % (0.0-10.0); %Lymphocytes 2.5 % (21.0-51.0); %Monocytes 2.9 % (0.0-10.0); %Neutrophils 94.6 % (42.0-75.0); Hemoglobin 14.9 g/dL (12.0-16.0); Mean Corpuscular HGB CONC 33.4 g/dL (32.0-36.0); Mean Corpuscular Hemoglobin 30.5 pg (27.0-31.0); Mean Corpuscular Volume 91.3 fL (78.0-98.0); Mean Platelet Volume 8.9 fL (7.4-10.4); Platelet Count 191 thou/uL (130-400); RBC Distribution Width 13.1 % (11.5-14.5); Red Blood Cell (RBC) Count 4.87 mill/uL (4.20-5.40); White Blood Cell (WBC) Count 15.9 thou/uL (4.8-10.8)
[2020-09-30] MEDS: Ascorbic Acid 500 mg Chewable Tablet PO SCH (08:08)
[2020-09-30] MEDS: Aspirin 81 mg Enteric Coated Tablet PO SCH (08:08)
[2020-09-30] MEDS: Carvedilol 6.25 MG TAB PO SCH ×2 (08:08→17:53)
[2020-09-30] MEDS: Amlodipine 5 MG TAB PO SCH ×2 (08:08→22:05)
[2020-09-30] MEDS: Colchicine 0.6 MG TAB PO SCH (08:08)
[2020-09-30] MEDS: Furosemide 40 MG TAB PO SCH ×2 (08:09→13:54)
[2020-09-30] MEDS: Zinc Sulfate 220 MG CAP PO SCH (08:09)
[2020-09-30] MEDS: hydrALAZINE 25 MG TAB PO SCH ×2 (08:09→20:54)
[2020-09-30] MEDS: guaiFENesin ER 600 MG TAB PO SCH ×2 (08:09→20:56)
[2020-09-30] MEDS: Enoxaparin Sodium 60 MG/0.6 ML SYRINGE SC SCH ×2 (08:09→20:53)
[2020-09-30] MEDS: Sacubitril 49 MG/Valsartan 51 MG TABLET PO SCH ×2 (08:09→21:23)
[2020-09-30] MEDS: NPH, Human Insulin Isophane 300 UNIT/3 ML VIAL SC SCH ×2 (08:12→20:56)
[2020-09-30 08:30] LABS: Magnesium 2.3 mg/dL (1.6-2.6); Phosphorus 3.1 mg/dL (2.3-4.7)
[2020-09-30] MEDS ORDERED: Furosemide 40 MG/4 ML VIAL SLOW IVP SCH (13:15)
[2020-09-30] MEDS: Loperamide HCl 2 MG CAP PO PRN ×2 (13:54→20:53)
[2020-09-30] MEDS: Zolpidem Tartrate 5 MG TAB PO PRN (20:53)
[2020-10-01] MEDS: methylPREDNISolone Sod Succ 40 MG VIAL IVP SCH ×4 (00:04→20:34)
[2020-10-01] MEDS: HYDROcodone/Acetaminophen 5/325 mg Tablet PO PRN ×6 (00:04→23:23)
[2020-10-01] MEDS: Benzonatate 100 MG CAP PO SCH ×4 (00:04→23:24)
[2020-10-01] MEDS: HumaLOG 300 UNITS/3 ML VIAL SC PRN ×4 (06:08→20:34)
[2020-10-01] MEDS: Loperamide HCl 2 MG CAP PO PRN ×2 (06:30→20:23)
[2020-10-01] MEDS: Sacubitril 49 MG/Valsartan 51 MG TABLET PO SCH ×2 (08:45→20:23)
[2020-10-01] MEDS: Ascorbic Acid 500 mg Chewable Tablet PO SCH (08:45)
[2020-10-01] MEDS: Carvedilol 6.25 MG TAB PO SCH ×3 (08:45→16:19)
[2020-10-01] MEDS: guaiFENesin ER 600 MG TAB PO SCH ×2 (08:45→20:23)
[2020-10-01] MEDS: Zinc Sulfate 220 MG CAP PO SCH (08:46)
[2020-10-01] MEDS: Amlodipine 5 MG TAB PO SCH ×2 (08:46→20:23)
[2020-10-01] MEDS: Furosemide 40 MG TAB PO SCH ×2 (08:46→13:00)
[2020-10-01] MEDS: Colchicine 0.6 MG TAB PO SCH (08:46)
[2020-10-01] MEDS: hydrALAZINE 25 MG TAB PO SCH ×2 (08:46→20:24)
[2020-10-01] MEDS: Aspirin 81 mg Enteric Coated Tablet PO SCH (08:46)
[2020-10-01] MEDS: Enoxaparin Sodium 60 MG/0.6 ML SYRINGE SC SCH ×2 (08:47→20:25)
[2020-10-01 10:14] LABS: #Lymphocytes 0.3 thou/uL (1.20-3.40); #Monocytes 0.6 thou/uL (0.11-0.59); %Eosinophils 0.2 % (0.0-10.0); %Lymphocytes 2.4 % (21.0-51.0); %Monocytes 5.5 % (0.0-10.0); %Neutrophils 91.9 % (42.0-75.0); Hemoglobin 13.8 g/dL (12.0-16.0); Mean Corpuscular Hemoglobin 30.6 pg (27.0-31.0); Mean Corpuscular Volume 90.1 fL (78.0-98.0); Mean Platelet Volume 8.6 fL (7.4-10.4); Platelet Count 169 thou/uL (130-400); RBC Distribution Width 13.1 % (11.5-14.5); White Blood Cell (WBC) Count 10.9 thou/uL (4.8-10.8)
[2020-10-01 10:38] LABS: Anion Gap 18 mmol/L (10-20); BUN (Urea Nitrogen) 33 mg/dL (9.8-20.1); Calc. Creatinine Clearance 102 mL/min (70-130); Calcium 8.7 mg/dL (7.8-10.44); Carbon Dioxide 21 mmol/L (23-31); Chloride 96 mmol/L (98-107); Glucose 241 mg/dL (80-115); Potassium 3.7 mmol/L (3.5-5.1); Sodium 131 mmol/L (136-145)
[2020-10-01] MEDS: NPH, Human Insulin Isophane 300 UNIT/3 ML VIAL SC SCH ×2 (10:49→20:35)
[2020-10-01] MEDS ORDERED: Furosemide 40 MG/4 ML VIAL SLOW IVP SCH (11:45)
[2020-10-02] MEDS: HYDROcodone/Acetaminophen 5/325 mg Tablet PO PRN ×5 (05:00→22:59)
[2020-10-02] MEDS: HumaLOG 300 UNITS/3 ML VIAL SC PRN ×2 (06:08→16:45)
[2020-10-02] MEDS: Carvedilol 6.25 MG TAB PO SCH ×2 (09:15→16:09)
[2020-10-02] MEDS: Enoxaparin Sodium 60 MG/0.6 ML SYRINGE SC SCH ×2 (09:37→22:22)
[2020-10-02] MEDS: Zinc Sulfate 220 MG CAP PO SCH (09:37)
[2020-10-02] MEDS: guaiFENesin ER 600 MG TAB PO SCH ×2 (09:38→22:23)
[2020-10-02] MEDS: Aspirin 81 mg Enteric Coated Tablet PO SCH (09:38)
[2020-10-02] MEDS: Amlodipine 5 MG TAB PO SCH ×2 (09:38→22:22)
[2020-10-02] MEDS: Furosemide 40 MG TAB PO SCH ×2 (09:38→13:06)
[2020-10-02] MEDS: hydrALAZINE 25 MG TAB PO SCH ×2 (09:38→22:23)
[2020-10-02] MEDS: Sacubitril 49 MG/Valsartan 51 MG TABLET PO SCH ×2 (09:38→22:29)
[2020-10-02] MEDS: Ascorbic Acid 500 mg Chewable Tablet PO SCH (09:38)
[2020-10-02] MEDS: Benzonatate 100 MG CAP PO SCH ×2 (09:39→15:27)
[2020-10-02] MEDS: NPH, Human Insulin Isophane 300 UNIT/3 ML VIAL SC SCH ×2 (09:40→22:23)
[2020-10-02] MEDS: methylPREDNISolone Sod Succ 40 MG VIAL IVP SCH ×2 (09:42→22:22)
[2020-10-02] MEDS: Loperamide HCl 2 MG CAP PO PRN (12:21)
[2020-10-03] MEDS: Benzonatate 100 MG CAP PO SCH ×3 (00:15→15:20)
[2020-10-03] MEDS: HYDROcodone/Acetaminophen 5/325 mg Tablet PO PRN ×5 (05:19→23:47)
[2020-10-03] MEDS: Carvedilol 6.25 MG TAB PO SCH ×2 (08:09→17:13)
[2020-10-03] MEDS: Enoxaparin Sodium 60 MG/0.6 ML SYRINGE SC SCH ×2 (08:09→21:42)
[2020-10-03] MEDS: Ascorbic Acid 500 mg Chewable Tablet PO SCH (08:09)
[2020-10-03] MEDS: Aspirin 81 mg Enteric Coated Tablet PO SCH (08:09)
[2020-10-03] MEDS: Furosemide 40 MG TAB PO SCH ×2 (08:10→13:19)
[2020-10-03] MEDS: Zinc Sulfate 220 MG CAP PO SCH (08:10)
[2020-10-03] MEDS: methylPREDNISolone Sod Succ 40 MG VIAL IVP SCH ×2 (08:10→21:40)
[2020-10-03] MEDS: Amlodipine 5 MG TAB PO SCH ×2 (08:10→21:42)
[2020-10-03] MEDS: guaiFENesin ER 600 MG TAB PO SCH ×2 (08:10→21:43)
[2020-10-03] MEDS: hydrALAZINE 25 MG TAB PO SCH ×2 (08:10→21:43)
[2020-10-03] MEDS: NPH, Human Insulin Isophane 300 UNIT/3 ML VIAL SC SCH ×2 (08:11→21:44)
[2020-10-03] MEDS: HumaLOG 300 UNITS/3 ML VIAL SC PRN ×3 (08:14→17:49)
[2020-10-03] MEDS: Sacubitril 49 MG/Valsartan 51 MG TABLET PO SCH ×2 (08:22→23:33)
[2020-10-03] MEDS: Ondansetron PF 4 MG/2 ML Vial IVP PRN ×2 (09:43→18:00)
[2020-10-03] MEDS: Loperamide HCl 2 MG CAP PO PRN ×3 (10:16→17:50)
[2020-10-04] MEDS: Benzonatate 100 MG CAP PO SCH ×3 (00:03→16:45)
[2020-10-04 05:28] LABS: #Basophils 0.1 thou/uL (0.0-0.2); #Lymphocytes 0.3 thou/uL (1.20-3.40); #Monocytes 0.3 thou/uL (0.11-0.59); #Neutrophils 11.9 thou/uL (1.40-6.50); %Basophils 0.6 % (0.0-1.0); %Eosinophils 0.1 % (0.0-10.0); %Lymphocytes 2.4 % (21.0-51.0); %Monocytes 2.1 % (0.0-10.0); %Neutrophils 94.8 % (42.0-75.0); Hemoglobin 12.7 g/dL (12.0-16.0); Mean Corpuscular HGB CONC 33.6 g/dL (32.0-36.0); Mean Corpuscular Hemoglobin 30.6 pg (27.0-31.0); Mean Corpuscular Volume 91.2 fL (78.0-98.0); Mean Platelet Volume 8.9 fL (7.4-10.4); Platelet Count 181 thou/uL (130-400); RBC Distribution Width 12.9 % (11.5-14.5); Red Blood Cell (RBC) Count 4.15 mill/uL (4.20-5.40); White Blood Cell (WBC) Count 12.5 thou/uL (4.8-10.8)
[2020-10-04] MEDS: HYDROcodone/Acetaminophen 5/325 mg Tablet PO PRN ×3 (05:29→20:03)
[2020-10-04 05:50] LABS: Anion Gap 14 mmol/L (10-20); BUN (Urea Nitrogen) 32 mg/dL (9.8-20.1); CRP (Inflammatory) 3.68 mg/dL (= or < 0.5); Calc. Creatinine Clearance 102 mL/min (70-130); Carbon Dioxide 28 mmol/L (23-31); Chloride 95 mmol/L (98-107); Glucose 230 mg/dL (80-115); Magnesium 2.2 mg/dL (1.6-2.6); Phosphorus 3.2 mg/dL (2.3-4.7); Potassium 3.9 mmol/L (3.5-5.1); Sodium 133 mmol/L (136-145)
[2020-10-04] MEDS: HumaLOG 300 UNITS/3 ML VIAL SC PRN ×3 (06:19→16:55)
[2020-10-04] MEDS: Aspirin 81 mg Enteric Coated Tablet PO SCH (09:28)
[2020-10-04] MEDS: Ascorbic Acid 500 mg Chewable Tablet PO SCH (09:28)
[2020-10-04] MEDS: Enoxaparin Sodium 60 MG/0.6 ML SYRINGE SC SCH ×2 (09:28→20:04)
[2020-10-04] MEDS: Sacubitril 49 MG/Valsartan 51 MG TABLET PO SCH ×2 (09:28→20:37)
[2020-10-04] MEDS: guaiFENesin ER 600 MG TAB PO SCH ×2 (09:28→20:03)
[2020-10-04] MEDS: Furosemide 40 MG TAB PO SCH ×2 (09:29→13:16)
[2020-10-04] MEDS: Carvedilol 6.25 MG TAB PO SCH ×3 (09:29→17:03)
[2020-10-04] MEDS: Amlodipine 5 MG TAB PO SCH ×2 (09:29→20:03)
[2020-10-04] MEDS: Zinc Sulfate 220 MG CAP PO SCH (09:29)
[2020-10-04] MEDS: hydrALAZINE 25 MG TAB PO SCH ×2 (09:30→20:03)
[2020-10-04] MEDS: methylPREDNISolone Sod Succ 40 MG VIAL IVP SCH ×2 (09:30→20:05)
[2020-10-04] MEDS: NPH, Human Insulin Isophane 300 UNIT/3 ML VIAL SC SCH ×2 (09:31→20:21)
[2020-10-04] MEDS: Loperamide HCl 2 MG CAP PO PRN (16:57)
[2020-10-05] MEDS: Benzonatate 100 MG CAP PO SCH ×3 (02:08→15:44)
[2020-10-05] MEDS: HumaLOG 300 UNITS/3 ML VIAL SC PRN ×4 (06:39→20:29)
[2020-10-05] MEDS: Ascorbic Acid 500 mg Chewable Tablet PO SCH (09:09)
[2020-10-05] MEDS: hydrALAZINE 25 MG TAB PO SCH ×2 (09:09→20:27)
[2020-10-05] MEDS: Zinc Sulfate 220 MG CAP PO SCH (09:09)
[2020-10-05] MEDS: Aspirin 81 mg Enteric Coated Tablet PO SCH (09:09)
[2020-10-05] MEDS: Sacubitril 49 MG/Valsartan 51 MG TABLET PO SCH ×2 (09:09→22:30)
[2020-10-05] MEDS: Furosemide 40 MG TAB PO SCH ×2 (09:09→13:39)
[2020-10-05] MEDS: guaiFENesin ER 600 MG TAB PO SCH ×2 (09:09→20:27)
[2020-10-05] MEDS: Amlodipine 5 MG TAB PO SCH ×2 (09:09→20:27)
[2020-10-05] MEDS: Carvedilol 6.25 MG TAB PO SCH ×2 (09:09→16:21)
[2020-10-05] MEDS: Enoxaparin Sodium 60 MG/0.6 ML SYRINGE SC SCH ×2 (09:10→20:26)
[2020-10-05] MEDS: methylPREDNISolone Sod Succ 40 MG VIAL IVP SCH ×2 (09:11→22:30)
[2020-10-05] MEDS: NPH, Human Insulin Isophane 300 UNIT/3 ML VIAL SC SCH ×2 (09:14→20:28)
[2020-10-05] MEDS: Loperamide HCl 2 MG CAP PO PRN (12:43)
[2020-10-05] MEDS: HYDROcodone/Acetaminophen 5/325 mg Tablet PO PRN ×2 (15:00→20:26)
[2020-10-06] MEDS: Benzonatate 100 MG CAP PO SCH ×3 (01:18→16:05)
[2020-10-06] MEDS: HumaLOG 300 UNITS/3 ML VIAL SC PRN ×4 (06:28→22:08)
[2020-10-06] MEDS: hydrALAZINE 25 MG TAB PO SCH ×2 (08:44→22:06)
[2020-10-06] MEDS: Ascorbic Acid 500 mg Chewable Tablet PO SCH (08:44)
[2020-10-06] MEDS: guaiFENesin ER 600 MG TAB PO SCH ×2 (08:44→22:06)
[2020-10-06] MEDS: Sacubitril 49 MG/Valsartan 51 MG TABLET PO SCH ×2 (08:44→22:08)
[2020-10-06] MEDS: Aspirin 81 mg Enteric Coated Tablet PO SCH (08:44)
[2020-10-06] MEDS: Carvedilol 6.25 MG TAB PO SCH ×2 (08:45→16:05)
[2020-10-06] MEDS: Zinc Sulfate 220 MG CAP PO SCH (08:45)
[2020-10-06] MEDS: Amlodipine 5 MG TAB PO SCH ×2 (08:45→22:08)
[2020-10-06] MEDS: Enoxaparin Sodium 60 MG/0.6 ML SYRINGE SC SCH ×2 (08:45→22:07)
[2020-10-06] MEDS: Furosemide 40 MG TAB PO SCH ×2 (08:45→13:13)
[2020-10-06] MEDS: methylPREDNISolone Sod Succ 40 MG VIAL IVP SCH ×2 (08:46→22:07)
[2020-10-06] MEDS: NPH, Human Insulin Isophane 300 UNIT/3 ML VIAL SC SCH ×2 (08:47→22:07)
[2020-10-06] MEDS: Loperamide HCl 2 MG CAP PO PRN (11:06)
[2020-10-06] MEDS ORDERED: NPH, Human Insulin Isophane 300 UNIT/3 ML VIAL SC SCH (11:30)
[2020-10-06] MEDS: HYDROcodone/Acetaminophen 5/325 mg Tablet PO PRN (16:20)
[2020-10-06] MEDS: Melatonin 3 MG TAB PO PRN (22:23)
[2020-10-07] MEDS: Benzonatate 100 MG CAP PO SCH ×3 (01:34→15:59)
[2020-10-07] MEDS: Albuterol 200 PUFF (6.7GM INHALER) INH PRN (05:43)
[2020-10-07] MEDS: HumaLOG 300 UNITS/3 ML VIAL SC PRN ×3 (06:34→16:21)
[2020-10-07] MEDS: Enoxaparin Sodium 60 MG/0.6 ML SYRINGE SC SCH ×2 (10:42→20:43)
[2020-10-07] MEDS: Sacubitril 49 MG/Valsartan 51 MG TABLET PO SCH ×2 (10:42→22:21)
[2020-10-07] MEDS: methylPREDNISolone Sod Succ 40 MG VIAL IVP SCH ×2 (10:42→20:43)
[2020-10-07] MEDS: Loperamide HCl 2 MG CAP PO PRN (10:42)
[2020-10-07] MEDS: Carvedilol 6.25 MG TAB PO SCH ×2 (10:43→15:59)
[2020-10-07] MEDS: Ascorbic Acid 500 mg Chewable Tablet PO SCH (10:43)
[2020-10-07] MEDS: Zinc Sulfate 220 MG CAP PO SCH (10:43)
[2020-10-07] MEDS: hydrALAZINE 25 MG TAB PO SCH ×2 (10:43→20:43)
[2020-10-07] MEDS: Amlodipine 5 MG TAB PO SCH ×2 (10:43→20:42)
[2020-10-07] MEDS: Aspirin 81 mg Enteric Coated Tablet PO SCH (10:43)
[2020-10-07] MEDS: Furosemide 40 MG TAB PO SCH ×2 (10:44→15:59)
[2020-10-07] MEDS: guaiFENesin ER 600 MG TAB PO SCH ×2 (10:44→20:42)
[2020-10-07] MEDS: NPH, Human Insulin Isophane 300 UNIT/3 ML VIAL SC SCH ×2 (10:46→20:48)
[2020-10-08] MEDS: Benzonatate 100 MG CAP PO SCH ×3 (02:14→17:06)
[2020-10-08] MEDS: Carvedilol 6.25 MG TAB PO SCH ×2 (08:30→17:06)
[2020-10-08] MEDS: guaiFENesin ER 600 MG TAB PO SCH ×2 (08:31→20:39)
[2020-10-08] MEDS: hydrALAZINE 25 MG TAB PO SCH ×2 (08:31→20:39)
[2020-10-08] MEDS: Aspirin 81 mg Enteric Coated Tablet PO SCH (08:31)
[2020-10-08] MEDS: Ascorbic Acid 500 mg Chewable Tablet PO SCH (08:31)
[2020-10-08] MEDS: Furosemide 40 MG TAB PO SCH ×2 (08:31→14:15)
[2020-10-08] MEDS: Enoxaparin Sodium 60 MG/0.6 ML SYRINGE SC SCH ×2 (08:31→20:40)
[2020-10-08] MEDS: Amlodipine 5 MG TAB PO SCH ×2 (08:31→20:39)
[2020-10-08] MEDS: Zinc Sulfate 220 MG CAP PO SCH (08:32)
[2020-10-08] MEDS: methylPREDNISolone Sod Succ 40 MG VIAL IVP SCH ×2 (08:32→20:42)
[2020-10-08] MEDS: Sacubitril 49 MG/Valsartan 51 MG TABLET PO SCH ×2 (08:32→20:38)
[2020-10-08] MEDS: NPH, Human Insulin Isophane 300 UNIT/3 ML VIAL SC SCH ×2 (09:52→20:40)
[2020-10-08] MEDS: HumaLOG 300 UNITS/3 ML VIAL SC PRN ×3 (11:32→20:41)
[2020-10-08 11:37] LABS: Actual Bicarbonate (HCO3a) 28.1 mEq/L (22-28); Base Excess (BEa) 5.9 mEq/L (-2.0 to +3.0); CO2 Tension 32.5 mmHg (35.0-45.0); Calcium, Ionized (arterial) 1.12 mmol/L (1.12-1.30); Carboxyhemoglobin (COHb) 1.1 gm% (0.0-3.0); Potassium - ABG Lab 3.28 mmol/L (3.70-5.30)
[2020-10-08 13:14] LABS: O2 Tension (PaO2), arterial 45.3 mmHg (> 80.0); Puncture Site RRA; pH, Arterial 7.55 (7.35-7.45)
[2020-10-08 13:15] LABS: ALV-art Gradient 470.215 mmHg (0-20)
[2020-10-08] MEDS: Acetaminophen 325 MG TAB PO PRN (20:38)
[2020-10-09] MEDS: Benzonatate 100 MG CAP PO SCH ×3 (00:46→17:00)
[2020-10-09] MEDS: HYDROcodone/Acetaminophen 5/325 mg Tablet PO PRN ×2 (03:39→21:40)
[2020-10-09] MEDS: HumaLOG 300 UNITS/3 ML VIAL SC PRN ×2 (06:17→12:30)
[2020-10-09] MEDS: Sacubitril 49 MG/Valsartan 51 MG TABLET PO SCH ×2 (10:03→20:48)
[2020-10-09] MEDS: Ascorbic Acid 500 mg Chewable Tablet PO SCH (10:03)
[2020-10-09] MEDS: Aspirin 81 mg Enteric Coated Tablet PO SCH (10:03)
[2020-10-09] MEDS: Furosemide 40 MG TAB PO SCH ×2 (10:04→17:00)
[2020-10-09] MEDS: Carvedilol 6.25 MG TAB PO SCH ×2 (10:04→17:00)
[2020-10-09] MEDS: guaiFENesin ER 600 MG TAB PO SCH ×2 (10:05→20:48)
[2020-10-09] MEDS: hydrALAZINE 25 MG TAB PO SCH ×2 (10:05→20:48)
[2020-10-09] MEDS: Zinc Sulfate 220 MG CAP PO SCH (10:06)
[2020-10-09] MEDS: Amlodipine 5 MG TAB PO SCH ×2 (10:06→20:48)
[2020-10-09] MEDS: NPH, Human Insulin Isophane 300 UNIT/3 ML VIAL SC SCH ×2 (10:08→20:50)
[2020-10-09] MEDS: methylPREDNISolone Sod Succ 40 MG VIAL IVP SCH ×2 (10:09→20:54)
[2020-10-09] MEDS: Enoxaparin Sodium 60 MG/0.6 ML SYRINGE SC SCH ×2 (10:15→20:50)
[2020-10-10] MEDS: Benzonatate 100 MG CAP PO SCH ×3 (00:05→18:54)
[2020-10-10] MEDS: guaiFENesin ER 600 MG TAB PO SCH ×2 (10:03→20:35)
[2020-10-10] MEDS: Sacubitril 49 MG/Valsartan 51 MG TABLET PO SCH ×2 (10:03→20:35)
[2020-10-10] MEDS: Carvedilol 6.25 MG TAB PO SCH ×2 (10:04→18:54)
[2020-10-10] MEDS: Ascorbic Acid 500 mg Chewable Tablet PO SCH (10:04)
[2020-10-10] MEDS: Amlodipine 5 MG TAB PO SCH ×2 (10:05→20:27)
[2020-10-10] MEDS: Zinc Sulfate 220 MG CAP PO SCH (10:05)
[2020-10-10] MEDS: Aspirin 81 mg Enteric Coated Tablet PO SCH (10:06)
[2020-10-10] MEDS: Furosemide 40 MG TAB PO SCH ×2 (10:06→13:57)
[2020-10-10] MEDS: hydrALAZINE 25 MG TAB PO SCH ×2 (10:06→20:27)
[2020-10-10] MEDS: Enoxaparin Sodium 60 MG/0.6 ML SYRINGE SC SCH ×2 (10:07→20:27)
[2020-10-10] MEDS: NPH, Human Insulin Isophane 300 UNIT/3 ML VIAL SC SCH ×2 (10:07→20:27)
[2020-10-10] MEDS: HumaLOG 300 UNITS/3 ML VIAL SC PRN ×2 (12:09→20:32)
[2020-10-10] MEDS: methylPREDNISolone Sod Succ 40 MG VIAL IVP SCH ×2 (13:04→20:27)
[2020-10-10] MEDS: HYDROcodone/Acetaminophen 5/325 mg Tablet PO PRN ×2 (13:55→20:26)
[2020-10-11] MEDS: Zolpidem Tartrate 5 MG TAB PO PRN (00:01)
[2020-10-11] MEDS: Acetaminophen 325 MG TAB PO PRN (00:01)
[2020-10-11] MEDS: Benzonatate 100 MG CAP PO SCH ×3 (02:59→17:11)
[2020-10-11] MEDS: NPH, Human Insulin Isophane 300 UNIT/3 ML VIAL SC SCH ×2 (08:31→20:43)
[2020-10-11] MEDS: Enoxaparin Sodium 60 MG/0.6 ML SYRINGE SC SCH ×2 (08:33→20:47)
[2020-10-11] MEDS: methylPREDNISolone Sod Succ 40 MG VIAL IVP SCH ×2 (08:33→20:44)
[2020-10-11] MEDS: Sacubitril 49 MG/Valsartan 51 MG TABLET PO SCH ×2 (08:39→23:00)
[2020-10-11] MEDS: Zinc Sulfate 220 MG CAP PO SCH (08:39)
[2020-10-11] MEDS: Amlodipine 5 MG TAB PO SCH ×2 (08:40→20:42)
[2020-10-11] MEDS: Carvedilol 6.25 MG TAB PO SCH ×2 (08:41→17:18)
[2020-10-11] MEDS: guaiFENesin ER 600 MG TAB PO SCH ×2 (08:41→23:00)
[2020-10-11] MEDS: Ascorbic Acid 500 mg Chewable Tablet PO SCH (08:41)
[2020-10-11] MEDS: hydrALAZINE 25 MG TAB PO SCH ×2 (08:42→20:42)
[2020-10-11] MEDS: Aspirin 81 mg Enteric Coated Tablet PO SCH (08:42)
[2020-10-11] MEDS: Furosemide 40 MG TAB PO SCH ×2 (08:42→14:03)
[2020-10-11] MEDS: HYDROcodone/Acetaminophen 5/325 mg Tablet PO PRN ×2 (08:52→20:43)
[2020-10-11] MEDS: Albuterol 200 PUFF (6.7GM INHALER) INH PRN (13:54)
[2020-10-11] MEDS: HumaLOG 300 UNITS/3 ML VIAL SC PRN ×2 (17:11→20:44)
[2020-10-11] MEDS: Melatonin 3 MG TAB PO PRN (20:43)
[2020-10-12] MEDS: Benzonatate 100 MG CAP PO SCH ×3 (00:40→15:55)
[2020-10-12] MEDS: HYDROcodone/Acetaminophen 5/325 mg Tablet PO PRN ×2 (05:46→20:45)
[2020-10-12] MEDS: HumaLOG 300 UNITS/3 ML VIAL SC PRN ×4 (05:47→20:53)
[2020-10-12] MEDS: Enoxaparin Sodium 60 MG/0.6 ML SYRINGE SC SCH ×2 (10:15→20:44)
[2020-10-12] MEDS: Zinc Sulfate 220 MG CAP PO SCH (10:16)
[2020-10-12] MEDS: Amlodipine 5 MG TAB PO SCH ×2 (10:16→20:45)
[2020-10-12] MEDS: Furosemide 40 MG TAB PO SCH ×2 (10:16→15:55)
[2020-10-12] MEDS: Ascorbic Acid 500 mg Chewable Tablet PO SCH (10:17)
[2020-10-12] MEDS: guaiFENesin ER 600 MG TAB PO SCH ×2 (10:17→20:46)
[2020-10-12] MEDS: Aspirin 81 mg Enteric Coated Tablet PO SCH (10:17)
[2020-10-12] MEDS: Carvedilol 6.25 MG TAB PO SCH ×2 (10:18→15:55)
[2020-10-12] MEDS: methylPREDNISolone Sod Succ 40 MG VIAL IVP SCH ×2 (10:19→20:44)
[2020-10-12] MEDS: Sacubitril 49 MG/Valsartan 51 MG TABLET PO SCH ×2 (10:19→20:46)
[2020-10-12] MEDS: hydrALAZINE 25 MG TAB PO SCH ×2 (10:19→20:45)
[2020-10-12] MEDS: NPH, Human Insulin Isophane 300 UNIT/3 ML VIAL SC SCH ×2 (10:19→20:46)
[2020-10-12] MEDS ORDERED: Piperacillin/Tazobactam 3.375 GM in Sodium Chloride 0.9% 100 ML IVPB SCH ×2 (14:00→18:00)
[2020-10-12 14:58] LABS: Anion Gap 20 mmol/L (10-20); BUN (Urea Nitrogen) 23 mg/dL (9.8-20.1); Calc. Creatinine Clearance 96 mL/min (70-130); Calcium 8.5 mg/dL (7.8-10.44); Carbon Dioxide 21 mmol/L (23-31); Chloride 100 mmol/L (98-107); Glucose 315 mg/dL (80-115); Potassium 3.7 mmol/L (3.5-5.1); Sodium 137 mmol/L (136-145)
[2020-10-12] MEDS: VANCOMYCIN 2 GRAM/400 ML BAG 2 GM in Premix Bag 1 BAG IVPB SCH (18:51)
[2020-10-12] MEDS: Piperacillin/Tazobactam 3.375 GM in Sodium Chloride 0.9% 100 ML IVPB SCH (20:58)
[2020-10-12] MEDS ORDERED: Vancomycin 1 GM in Premix Bag 1 BAG IVPB SCH (21:00)
[2020-10-13] MEDS: Acetaminophen 325 MG TAB PO PRN (02:12)
[2020-10-13] MEDS: Piperacillin/Tazobactam 3.375 GM in Sodium Chloride 0.9% 100 ML IVPB SCH ×3 (05:33→21:46)
[2020-10-13] MEDS: Benzonatate 100 MG CAP PO SCH ×3 (07:08→16:36)
[2020-10-13] MEDS: HumaLOG 300 UNITS/3 ML VIAL SC PRN ×4 (07:12→22:48)
[2020-10-13 07:44] LABS: Hemoglobin 11.9 g/dL (12.0-16.0); Platelet Count 235 thou/uL (130-400)
[2020-10-13 07:55] LABS: Anion Gap 17 mmol/L (10-20); BUN (Urea Nitrogen) 27 mg/dL (9.8-20.1); Calc. Creatinine Clearance 102 mL/min (70-130); Calcium 8.8 mg/dL (7.8-10.44); Carbon Dioxide 27 mmol/L (23-31); Chloride 98 mmol/L (98-107); Glucose 254 mg/dL (80-115); Potassium 3.2 mmol/L (3.5-5.1); Sodium 139 mmol/L (136-145)
[2020-10-13] MEDS: Carvedilol 6.25 MG TAB PO SCH ×2 (09:10→16:36)
[2020-10-13] MEDS: Aspirin 81 mg Enteric Coated Tablet PO SCH (09:10)
[2020-10-13] MEDS: Ascorbic Acid 500 mg Chewable Tablet PO SCH (09:10)
[2020-10-13] MEDS: Furosemide 40 MG TAB PO SCH ×2 (09:10→13:55)
[2020-10-13] MEDS: hydrALAZINE 25 MG TAB PO SCH ×2 (09:11→20:24)
[2020-10-13] MEDS: guaiFENesin ER 600 MG TAB PO SCH ×2 (09:11→20:24)
[2020-10-13] MEDS: Amlodipine 5 MG TAB PO SCH ×2 (09:11→20:22)
[2020-10-13] MEDS: Enoxaparin Sodium 60 MG/0.6 ML SYRINGE SC SCH ×2 (09:11→20:20)
[2020-10-13] MEDS: Zinc Sulfate 220 MG CAP PO SCH (09:11)
[2020-10-13] MEDS: methylPREDNISolone Sod Succ 40 MG VIAL IVP SCH ×2 (09:12→20:25)
[2020-10-13] MEDS: Sacubitril 49 MG/Valsartan 51 MG TABLET PO SCH ×2 (11:02→20:24)
[2020-10-13] MEDS: NPH, Human Insulin Isophane 300 UNIT/3 ML VIAL SC SCH ×2 (11:02→22:45)
[2020-10-13] MEDS: HYDROcodone/Acetaminophen 5/325 mg Tablet PO PRN ×2 (13:54→20:29)
[2020-10-13] MEDS: VANCOMYCIN 2 GRAM/400 ML BAG 2 GM in Premix Bag 1 BAG IVPB SCH (14:50)
[2020-10-14] MEDS: Benzonatate 100 MG CAP PO SCH ×3 (00:46→15:14)
[2020-10-14] MEDS: HYDROcodone/Acetaminophen 5/325 mg Tablet PO PRN ×4 (02:11→23:06)
[2020-10-14 04:24] LABS: Anion Gap 15 mmol/L (10-20); BUN (Urea Nitrogen) 24 mg/dL (9.8-20.1); Calc. Creatinine Clearance 111 mL/min (70-130); Calcium 8.4 mg/dL (7.8-10.44); Carbon Dioxide 27 mmol/L (23-31); Chloride 100 mmol/L (98-107); Glucose 235 mg/dL (80-115); Sodium 139 mmol/L (136-145)
[2020-10-14 04:30] LABS: Potassium 2.8 mmol/L (3.5-5.1)
[2020-10-14] MEDS ORDERED: Electrolyte Replacement Protocol FS PRN (04:45)
[2020-10-14] MEDS ORDERED: Potassium Chloride 20 MEQ in Premix Bag 1 BAG IVPB SCH (06:00)
[2020-10-14] MEDS: Piperacillin/Tazobactam 3.375 GM in Sodium Chloride 0.9% 100 ML IVPB SCH ×3 (06:01→21:56)
[2020-10-14] MEDS: Potassium Chloride 20 MEQ TAB PO SCH ×2 (06:42→09:07)
[2020-10-14] MEDS: HumaLOG 300 UNITS/3 ML VIAL SC PRN ×3 (06:44→16:38)
[2020-10-14] MEDS: Carvedilol 6.25 MG TAB PO SCH ×2 (09:06→16:40)
[2020-10-14] MEDS: Aspirin 81 mg Enteric Coated Tablet PO SCH (09:06)
[2020-10-14] MEDS: Ascorbic Acid 500 mg Chewable Tablet PO SCH (09:06)
[2020-10-14] MEDS: guaiFENesin ER 600 MG TAB PO SCH ×2 (09:07→21:13)
[2020-10-14] MEDS: hydrALAZINE 25 MG TAB PO SCH ×2 (09:07→21:12)
[2020-10-14] MEDS: Zinc Sulfate 220 MG CAP PO SCH (09:07)
[2020-10-14] MEDS: Amlodipine 5 MG TAB PO SCH ×2 (09:07→21:12)
[2020-10-14] MEDS: Enoxaparin Sodium 60 MG/0.6 ML SYRINGE SC SCH ×2 (09:08→21:12)
[2020-10-14] MEDS: Furosemide 40 MG TAB PO SCH ×2 (09:08→15:14)
[2020-10-14] MEDS: methylPREDNISolone Sod Succ 40 MG VIAL IVP SCH ×2 (09:08→21:14)
[2020-10-14] MEDS: NPH, Human Insulin Isophane 300 UNIT/3 ML VIAL SC SCH ×2 (09:09→21:13)
[2020-10-14] MEDS: Sacubitril 49 MG/Valsartan 51 MG TABLET PO SCH ×2 (09:09→21:11)
[2020-10-14 14:23] LABS: Potassium 3.5 mmol/L (3.5-5.1)
[2020-10-14 14:28] LABS: Vancomycin, Trough 9.6 ug/mL
[2020-10-14] MEDS: VANCOMYCIN 2 GRAM/400 ML BAG 2 GM in Premix Bag 1 BAG IVPB SCH (16:39)
[2020-10-14] MEDS: Zolpidem Tartrate 5 MG TAB PO PRN (21:11)
[2020-10-14] MEDS: Melatonin 3 MG TAB PO PRN (21:11)
[2020-10-15] MEDS: Benzonatate 100 MG CAP PO SCH ×4 (00:15→23:33)
[2020-10-15 04:28] LABS: Anion Gap 15 mmol/L (10-20); BUN (Urea Nitrogen) 24 mg/dL (9.8-20.1); Calc. Creatinine Clearance 101 mL/min (70-130); Calcium 8.7 mg/dL (7.8-10.44); Carbon Dioxide 24 mmol/L (23-31); Chloride 104 mmol/L (98-107); Glucose 186 mg/dL (80-115); Potassium 3.4 mmol/L (3.5-5.1); Sodium 140 mmol/L (136-145)
[2020-10-15] MEDS: Piperacillin/Tazobactam 3.375 GM in Sodium Chloride 0.9% 100 ML IVPB SCH ×3 (05:22→21:26)
[2020-10-15] MEDS: HumaLOG 300 UNITS/3 ML VIAL SC PRN ×2 (05:34→16:48)
[2020-10-15] MEDS ORDERED: Potassium Chloride 20 MEQ TAB PO SCH (07:00)
[2020-10-15] MEDS: Aspirin 81 mg Enteric Coated Tablet PO SCH (10:42)
[2020-10-15] MEDS: guaiFENesin ER 600 MG TAB PO SCH ×2 (10:42→21:19)
[2020-10-15] MEDS: hydrALAZINE 25 MG TAB PO SCH ×2 (10:43→21:18)
[2020-10-15] MEDS: Carvedilol 6.25 MG TAB PO SCH ×2 (10:43→16:27)
[2020-10-15] MEDS: Amlodipine 5 MG TAB PO SCH ×2 (10:43→21:17)
[2020-10-15] MEDS: Sacubitril 49 MG/Valsartan 51 MG TABLET PO SCH ×2 (10:43→21:26)
[2020-10-15] MEDS: Furosemide 40 MG TAB PO SCH ×2 (10:43→13:23)
[2020-10-15] MEDS: Zinc Sulfate 220 MG CAP PO SCH (10:44)
[2020-10-15] MEDS: Ascorbic Acid 500 mg Chewable Tablet PO SCH (10:44)
[2020-10-15] MEDS: Enoxaparin Sodium 60 MG/0.6 ML SYRINGE SC SCH ×2 (10:44→21:19)
[2020-10-15] MEDS: methylPREDNISolone Sod Succ 40 MG VIAL IVP SCH ×2 (10:45→21:20)
[2020-10-15] MEDS: NPH, Human Insulin Isophane 300 UNIT/3 ML VIAL SC SCH ×2 (10:48→21:30)
[2020-10-15 14:50] LABS: Vancomycin, Trough 14.5 ug/mL
[2020-10-15] MEDS: ALPRAZolam 0.25 MG TAB PO PRN (16:24)
[2020-10-15] MEDS: VANCOMYCIN 2 GRAM/400 ML BAG 2 GM in Premix Bag 1 BAG IVPB SCH (16:26)
[2020-10-15] MEDS: Vancomycin 1 GM in Premix Bag 1 BAG IVPB SCH (16:33)
[2020-10-15] MEDS: Melatonin 3 MG TAB PO PRN (21:18)
[2020-10-15] MEDS: HYDROcodone/Acetaminophen 5/325 mg Tablet PO PRN (23:32)
[2020-10-16 04:03] LABS: Hemoglobin 12.3 g/dL (12.0-16.0); Platelet Count 212 thou/uL (130-400)
[2020-10-16] MEDS: Vancomycin 1 GM in Premix Bag 1 BAG IVPB SCH ×2 (04:04→17:13)
[2020-10-16] MEDS: ALPRAZolam 0.25 MG TAB PO PRN (04:11)
[2020-10-16 04:23] LABS: Anion Gap 14 mmol/L (10-20); BUN (Urea Nitrogen) 21 mg/dL (9.8-20.1); Calc. Creatinine Clearance 119 mL/min (70-130); Calcium 8.7 mg/dL (7.8-10.44); Carbon Dioxide 25 mmol/L (23-31); Chloride 105 mmol/L (98-107); Glucose 117 mg/dL (80-115); Potassium 3.6 mmol/L (3.5-5.1); Sodium 140 mmol/L (136-145)
[2020-10-16] MEDS: Piperacillin/Tazobactam 3.375 GM in Sodium Chloride 0.9% 100 ML IVPB SCH ×3 (06:07→21:56)
[2020-10-16] MEDS: Zinc Sulfate 220 MG CAP PO SCH (09:43)
[2020-10-16] MEDS: Carvedilol 6.25 MG TAB PO SCH ×2 (09:43→17:13)
[2020-10-16] MEDS: Amlodipine 5 MG TAB PO SCH ×2 (09:43→20:11)
[2020-10-16] MEDS: Sacubitril 49 MG/Valsartan 51 MG TABLET PO SCH ×2 (09:44→20:11)
[2020-10-16] MEDS: Furosemide 40 MG TAB PO SCH ×2 (09:44→14:00)
[2020-10-16] MEDS: Aspirin 81 mg Enteric Coated Tablet PO SCH (09:44)
[2020-10-16] MEDS: hydrALAZINE 25 MG TAB PO SCH ×2 (09:44→20:10)
[2020-10-16] MEDS: guaiFENesin ER 600 MG TAB PO SCH ×2 (09:44→20:11)
[2020-10-16] MEDS: Ascorbic Acid 500 mg Chewable Tablet PO SCH (09:44)
[2020-10-16] MEDS: Benzonatate 100 MG CAP PO SCH ×3 (09:45→23:11)
[2020-10-16] MEDS: Enoxaparin Sodium 60 MG/0.6 ML SYRINGE SC SCH ×2 (09:45→20:10)
[2020-10-16] MEDS: methylPREDNISolone Sod Succ 40 MG VIAL IVP SCH ×2 (09:45→20:12)
[2020-10-16] MEDS: NPH, Human Insulin Isophane 300 UNIT/3 ML VIAL SC SCH ×2 (09:49→20:18)
[2020-10-16] MEDS: HYDROcodone/Acetaminophen 5/325 mg Tablet PO PRN ×2 (12:18→22:39)
[2020-10-16] MEDS ORDERED: ALPRAZolam 0.25 MG TAB PO SCH (14:15)
[2020-10-16] MEDS: HumaLOG 300 UNITS/3 ML VIAL SC PRN ×2 (17:14→21:56)
[2020-10-16] MEDS: Melatonin 3 MG TAB PO PRN (20:10)
[2020-10-16] MEDS: ALPRAZolam 0.25 MG TAB PO SCH (20:10)
[2020-10-16] MEDS: Zolpidem Tartrate 5 MG TAB PO PRN (22:40)
[2020-10-17] MEDS: Vancomycin 1 GM in Premix Bag 1 BAG IVPB SCH (04:16)
[2020-10-17 04:39] LABS: Anion Gap 16 mmol/L (10-20); BUN (Urea Nitrogen) 19 mg/dL (9.8-20.1); Calc. Creatinine Clearance 115 mL/min (70-130); Calcium 8.7 mg/dL (7.8-10.44); Carbon Dioxide 25 mmol/L (23-31); Chloride 102 mmol/L (98-107); Glucose 116 mg/dL (80-115); Potassium 3.5 mmol/L (3.5-5.1); Sodium 139 mmol/L (136-145)
[2020-10-17 04:40] LABS: Vancomycin, Trough 22.2 ug/mL
[2020-10-17] MEDS: Piperacillin/Tazobactam 3.375 GM in Sodium Chloride 0.9% 100 ML IVPB SCH ×3 (06:26→20:36)
[2020-10-17] MEDS: HumaLOG 300 UNITS/3 ML VIAL SC PRN ×2 (06:27→16:58)
[2020-10-17] MEDS ORDERED: Potassium Chloride 20 MEQ TAB PO SCH ×2 (06:45→08:45)
[2020-10-17] MEDS: Carvedilol 6.25 MG TAB PO SCH ×2 (09:08→16:57)
[2020-10-17] MEDS: Sacubitril 49 MG/Valsartan 51 MG TABLET PO SCH ×2 (09:08→20:17)
[2020-10-17] MEDS: ALPRAZolam 0.25 MG TAB PO SCH ×2 (09:09→20:17)
[2020-10-17] MEDS: Ascorbic Acid 500 mg Chewable Tablet PO SCH (09:09)
[2020-10-17] MEDS: guaiFENesin ER 600 MG TAB PO SCH ×2 (09:10→20:17)
[2020-10-17] MEDS: hydrALAZINE 25 MG TAB PO SCH ×2 (09:10→20:18)
[2020-10-17] MEDS: Amlodipine 5 MG TAB PO SCH ×2 (09:10→20:17)
[2020-10-17] MEDS: Furosemide 40 MG TAB PO SCH ×2 (09:10→13:02)
[2020-10-17] MEDS: Aspirin 81 mg Enteric Coated Tablet PO SCH (09:10)
[2020-10-17] MEDS: Zinc Sulfate 220 MG CAP PO SCH (09:10)
[2020-10-17] MEDS: methylPREDNISolone Sod Succ 40 MG VIAL IVP SCH ×2 (09:11→20:17)
[2020-10-17] MEDS: Enoxaparin Sodium 60 MG/0.6 ML SYRINGE SC SCH ×2 (09:11→20:17)
[2020-10-17] MEDS: Benzonatate 100 MG CAP PO SCH ×2 (09:13→16:43)
[2020-10-17] MEDS: NPH, Human Insulin Isophane 300 UNIT/3 ML VIAL SC SCH ×2 (09:17→20:19)
[2020-10-17] MEDS: HYDROcodone/Acetaminophen 5/325 mg Tablet PO PRN (13:02)
[2020-10-17] MEDS: ALPRAZolam 0.5 MG TAB PO PRN (16:57)
[2020-10-17] MEDS: Vancomycin HCl 750 MG in Sodium Chloride 0.9% 250 ML 250 ML IVPB SCH (17:00)
[2020-10-17] MEDS: Melatonin 3 MG TAB PO PRN (20:33)
[2020-10-18] MEDS: Benzonatate 100 MG CAP PO SCH ×4 (02:19→23:38)
[2020-10-18 04:39] LABS: Anion Gap 19 mmol/L (10-20); BUN (Urea Nitrogen) 23 mg/dL (9.8-20.1); Calc. Creatinine Clearance 117 mL/min (70-130); Calcium 8.3 mg/dL (7.8-10.44); Carbon Dioxide 20 mmol/L (23-31); Chloride 108 mmol/L (98-107); Glucose 126 mg/dL (80-115); Potassium 4.2 mmol/L (3.5-5.1); Sodium 143 mmol/L (136-145)
[2020-10-18] MEDS: Vancomycin HCl 750 MG in Sodium Chloride 0.9% 250 ML 250 ML IVPB SCH ×2 (06:22→16:14)
[2020-10-18] MEDS: ALPRAZolam 0.5 MG TAB PO PRN ×3 (06:22→16:14)
[2020-10-18] MEDS: Piperacillin/Tazobactam 3.375 GM in Sodium Chloride 0.9% 100 ML IVPB SCH ×3 (06:22→20:17)
[2020-10-18] MEDS: Carvedilol 6.25 MG TAB PO SCH ×2 (09:00→16:14)
[2020-10-18] MEDS: Amlodipine 5 MG TAB PO SCH ×2 (11:54→19:54)
[2020-10-18] MEDS: ALPRAZolam 0.25 MG TAB PO SCH ×2 (11:54→19:54)
[2020-10-18] MEDS: Aspirin 81 mg Enteric Coated Tablet PO SCH (11:54)
[2020-10-18] MEDS: Ascorbic Acid 500 mg Chewable Tablet PO SCH (11:54)
[2020-10-18] MEDS: guaiFENesin ER 600 MG TAB PO SCH ×2 (11:54→20:16)
[2020-10-18] MEDS: Furosemide 40 MG TAB PO SCH ×2 (11:54→13:14)
[2020-10-18] MEDS: Enoxaparin Sodium 60 MG/0.6 ML SYRINGE SC SCH ×2 (11:54→19:54)
[2020-10-18] MEDS: hydrALAZINE 25 MG TAB PO SCH ×2 (11:54→19:57)
[2020-10-18] MEDS: methylPREDNISolone Sod Succ 40 MG VIAL IVP SCH ×2 (11:54→19:57)
[2020-10-18] MEDS: Sacubitril 49 MG/Valsartan 51 MG TABLET PO SCH ×2 (11:54→19:54)
[2020-10-18] MEDS: Zinc Sulfate 220 MG CAP PO SCH (11:55)
[2020-10-18] MEDS: NPH, Human Insulin Isophane 300 UNIT/3 ML VIAL SC SCH ×2 (11:56→20:17)
[2020-10-18] MEDS: HYDROcodone/Acetaminophen 5/325 mg Tablet PO PRN (13:14)
[2020-10-18] MEDS: Acetaminophen 325 MG TAB PO PRN (16:21)
[2020-10-18] MEDS: HumaLOG 300 UNITS/3 ML VIAL SC PRN (16:23)
[2020-10-18] MEDS: Melatonin 3 MG TAB PO PRN (19:55)
[2020-10-19] MEDS: Acetaminophen 325 MG TAB PO PRN ×2 (02:32→15:16)
[2020-10-19 03:34] LABS: Platelet Count 210 thou/uL (130-400)
[2020-10-19 04:07] LABS: Vancomycin, Trough 13.7 ug/mL
[2020-10-19] MEDS: Vancomycin HCl 750 MG in Sodium Chloride 0.9% 250 ML 250 ML IVPB SCH ×4 (05:51→21:42)
[2020-10-19] MEDS: Piperacillin/Tazobactam 3.375 GM in Sodium Chloride 0.9% 100 ML IVPB SCH ×3 (07:21→23:14)
[2020-10-19] MEDS: Sacubitril 49 MG/Valsartan 51 MG TABLET PO SCH ×2 (08:23→21:06)
[2020-10-19] MEDS: hydrALAZINE 25 MG TAB PO SCH ×2 (08:24→21:40)
[2020-10-19] MEDS: Ascorbic Acid 500 mg Chewable Tablet PO SCH (08:24)
[2020-10-19] MEDS: Enoxaparin Sodium 60 MG/0.6 ML SYRINGE SC SCH ×2 (08:24→21:06)
[2020-10-19] MEDS: Zinc Sulfate 220 MG CAP PO SCH (08:24)
[2020-10-19] MEDS: Aspirin 81 mg Enteric Coated Tablet PO SCH (08:24)
[2020-10-19] MEDS: Furosemide 40 MG TAB PO SCH ×2 (08:24→15:16)
[2020-10-19] MEDS: ALPRAZolam 0.25 MG TAB PO SCH ×2 (08:25→21:40)
[2020-10-19] MEDS: guaiFENesin ER 600 MG TAB PO SCH ×2 (08:25→21:19)
[2020-10-19] MEDS: Carvedilol 6.25 MG TAB PO SCH ×2 (08:25→15:14)
[2020-10-19] MEDS: Amlodipine 5 MG TAB PO SCH ×2 (08:25→21:40)
[2020-10-19] MEDS: methylPREDNISolone Sod Succ 40 MG VIAL IVP SCH ×2 (08:26→21:06)
[2020-10-19] MEDS: Benzonatate 100 MG CAP PO SCH ×2 (08:28→16:38)
[2020-10-19] MEDS: NPH, Human Insulin Isophane 300 UNIT/3 ML VIAL SC SCH ×2 (08:28→21:30)
[2020-10-19] MEDS: ALPRAZolam 0.5 MG TAB PO PRN (15:16)
[2020-10-20] MEDS: Benzonatate 100 MG CAP PO SCH ×3 (00:12→15:14)
[2020-10-20] MEDS ORDERED: Vancomycin HCl 750 MG in Sodium Chloride 0.9% 250 ML 250 ML IVPB SCH (05:00)
[2020-10-20] MEDS: Piperacillin/Tazobactam 3.375 GM in Sodium Chloride 0.9% 100 ML IVPB SCH ×3 (06:13→21:35)
[2020-10-20] MEDS: Aspirin 81 mg Enteric Coated Tablet PO SCH (09:17)
[2020-10-20] MEDS: guaiFENesin ER 600 MG TAB PO SCH ×2 (09:17→20:57)
[2020-10-20] MEDS: Enoxaparin Sodium 60 MG/0.6 ML SYRINGE SC SCH ×2 (09:18→20:57)
[2020-10-20] MEDS: Furosemide 40 MG TAB PO SCH ×2 (09:18→14:22)
[2020-10-20] MEDS: Ascorbic Acid 500 mg Chewable Tablet PO SCH (09:18)
[2020-10-20] MEDS: methylPREDNISolone Sod Succ 40 MG VIAL IVP SCH ×2 (09:18→20:59)
[2020-10-20] MEDS: Zinc Sulfate 220 MG CAP PO SCH (09:18)
[2020-10-20] MEDS: ALPRAZolam 0.25 MG TAB PO SCH ×2 (09:18→20:57)
[2020-10-20] MEDS: Vancomycin HCl 750 MG in Sodium Chloride 0.9% 250 ML 250 ML IVPB SCH ×2 (09:19→21:11)
[2020-10-20] MEDS: NPH, Human Insulin Isophane 300 UNIT/3 ML VIAL SC SCH ×2 (09:20→21:22)
[2020-10-20] MEDS: Sacubitril 49 MG/Valsartan 51 MG TABLET PO SCH ×2 (10:44→20:57)
[2020-10-20] MEDS: Carvedilol 6.25 MG TAB PO SCH ×2 (10:44→18:12)
[2020-10-20] MEDS: hydrALAZINE 25 MG TAB PO SCH ×2 (10:44→20:57)
[2020-10-20] MEDS: Amlodipine 5 MG TAB PO SCH ×2 (10:44→20:57)
[2020-10-20 20:17] LABS: Vancomycin, Trough 11.1 ug/mL
[2020-10-21] MEDS: Benzonatate 100 MG CAP PO SCH ×3 (01:39→15:36)
[2020-10-21] MEDS: Piperacillin/Tazobactam 3.375 GM in Sodium Chloride 0.9% 100 ML IVPB SCH ×3 (05:40→21:26)
[2020-10-21] MEDS: Aspirin 81 mg Enteric Coated Tablet PO SCH (09:37)
[2020-10-21] MEDS: ALPRAZolam 0.25 MG TAB PO SCH ×2 (09:37→20:08)
[2020-10-21] MEDS: Carvedilol 6.25 MG TAB PO SCH ×2 (09:38→17:47)
[2020-10-21] MEDS: guaiFENesin ER 600 MG TAB PO SCH ×2 (09:39→20:09)
[2020-10-21] MEDS: hydrALAZINE 25 MG TAB PO SCH ×2 (09:39→20:08)
[2020-10-21] MEDS: Zinc Sulfate 220 MG CAP PO SCH (09:39)
[2020-10-21] MEDS: Ascorbic Acid 500 mg Chewable Tablet PO SCH (09:39)
[2020-10-21] MEDS: Amlodipine 5 MG TAB PO SCH ×2 (09:39→20:08)
[2020-10-21] MEDS: Furosemide 40 MG TAB PO SCH ×2 (09:39→14:21)
[2020-10-21] MEDS: Enoxaparin Sodium 60 MG/0.6 ML SYRINGE SC SCH ×2 (09:40→20:09)
[2020-10-21] MEDS: Sacubitril 49 MG/Valsartan 51 MG TABLET PO SCH ×2 (09:40→20:07)
[2020-10-21] MEDS: methylPREDNISolone Sod Succ 40 MG VIAL IVP SCH ×2 (09:41→20:09)
[2020-10-21] MEDS: Vancomycin 1 GM in Premix Bag 1 BAG IVPB SCH ×2 (09:41→20:09)
[2020-10-21] MEDS: NPH, Human Insulin Isophane 300 UNIT/3 ML VIAL SC SCH ×2 (09:43→21:25)
[2020-10-21] MEDS ORDERED: Zolpidem Tartrate 5 MG TAB PO PRN (09:45)
[2020-10-21] MEDS: HYDROcodone/Acetaminophen 5/325 mg Tablet PO PRN ×2 (09:47→15:36)
[2020-10-21 12:11] LABS: Anion Gap 16 mmol/L (10-20); BUN (Urea Nitrogen) 20 mg/dL (9.8-20.1); Calc. Creatinine Clearance 113 mL/min (70-130); Calcium 8.3 mg/dL (7.8-10.44); Carbon Dioxide 23 mmol/L (23-31); Chloride 104 mmol/L (98-107); Glucose 125 mg/dL (80-115); Potassium 3.3 mmol/L (3.5-5.1); Sodium 140 mmol/L (136-145)
[2020-10-21] MEDS ORDERED: Potassium Chloride 20 MEQ TAB PO SCH (13:30)
[2020-10-21] MEDS: Melatonin 3 MG TAB PO PRN (20:08)
[2020-10-22] MEDS: Benzonatate 100 MG CAP PO SCH ×3 (00:16→17:00)
[2020-10-22] MEDS: Piperacillin/Tazobactam 3.375 GM in Sodium Chloride 0.9% 100 ML IVPB SCH ×3 (05:21→22:25)
[2020-10-22] MEDS: HumaLOG 300 UNITS/3 ML VIAL SC PRN ×3 (05:23→17:01)
[2020-10-22] MEDS: Vancomycin 1 GM in Premix Bag 1 BAG IVPB SCH ×2 (09:05→20:35)
[2020-10-22] MEDS: Sacubitril 49 MG/Valsartan 51 MG TABLET PO SCH ×2 (09:06→20:30)
[2020-10-22] MEDS: Enoxaparin Sodium 60 MG/0.6 ML SYRINGE SC SCH ×2 (09:06→20:25)
[2020-10-22] MEDS: Ascorbic Acid 500 mg Chewable Tablet PO SCH (09:07)
[2020-10-22] MEDS: methylPREDNISolone Sod Succ 40 MG VIAL IVP SCH ×2 (09:07→20:26)
[2020-10-22] MEDS: guaiFENesin ER 600 MG TAB PO SCH ×2 (09:08→20:26)
[2020-10-22] MEDS: Aspirin 81 mg Enteric Coated Tablet PO SCH (09:08)
[2020-10-22] MEDS: Furosemide 40 MG TAB PO SCH ×2 (09:08→17:00)
[2020-10-22] MEDS: ALPRAZolam 0.25 MG TAB PO SCH ×2 (09:08→20:25)
[2020-10-22] MEDS: hydrALAZINE 25 MG TAB PO SCH ×2 (09:08→20:25)
[2020-10-22] MEDS: Carvedilol 6.25 MG TAB PO SCH ×2 (09:09→17:00)
[2020-10-22] MEDS: Amlodipine 5 MG TAB PO SCH ×2 (09:09→20:24)
[2020-10-22] MEDS: Zinc Sulfate 220 MG CAP PO SCH (09:09)
[2020-10-22] MEDS: NPH, Human Insulin Isophane 300 UNIT/3 ML VIAL SC SCH ×2 (09:10→20:30)
[2020-10-22] MEDS: ALPRAZolam 0.5 MG TAB PO PRN (17:00)
[2020-10-22] MEDS: HYDROcodone/Acetaminophen 5/325 mg Tablet PO PRN (20:24)
[2020-10-22] MEDS: Melatonin 3 MG TAB PO PRN (20:25)
[2020-10-22 22:47] LABS: Calc. Creatinine Clearance 124 mL/min (70-130); Vancomycin, Trough 23.7 ug/mL
[2020-10-23] MEDS: Benzonatate 100 MG CAP PO SCH ×4 (08:00→23:23)
[2020-10-23] MEDS: Piperacillin/Tazobactam 3.375 GM in Sodium Chloride 0.9% 100 ML IVPB SCH (08:00)
[2020-10-23] MEDS: Carvedilol 6.25 MG TAB PO SCH ×2 (08:59→16:41)
[2020-10-23] MEDS: Sacubitril 49 MG/Valsartan 51 MG TABLET PO SCH ×2 (08:59→21:26)
[2020-10-23] MEDS: Amlodipine 5 MG TAB PO SCH ×2 (09:00→21:26)
[2020-10-23] MEDS: hydrALAZINE 25 MG TAB PO SCH ×2 (09:00→21:27)
[2020-10-23] MEDS: Ascorbic Acid 500 mg Chewable Tablet PO SCH (09:00)
[2020-10-23] MEDS: guaiFENesin ER 600 MG TAB PO SCH ×2 (09:00→21:27)
[2020-10-23] MEDS: Furosemide 40 MG TAB PO SCH ×2 (09:00→14:02)
[2020-10-23] MEDS: Zinc Sulfate 220 MG CAP PO SCH (09:00)
[2020-10-23] MEDS: NPH, Human Insulin Isophane 300 UNIT/3 ML VIAL SC SCH ×2 (09:01→21:43)
[2020-10-23] MEDS: Enoxaparin Sodium 60 MG/0.6 ML SYRINGE SC SCH ×2 (09:01→21:28)
[2020-10-23] MEDS: Aspirin 81 mg Enteric Coated Tablet PO SCH (09:01)
[2020-10-23] MEDS: Vancomycin 1 GM in Premix Bag 1 BAG IVPB SCH (09:01)
[2020-10-23] MEDS: HYDROcodone/Acetaminophen 5/325 mg Tablet PO PRN ×3 (09:03→23:22)
[2020-10-23] MEDS: ALPRAZolam 0.25 MG TAB PO SCH ×2 (09:03→21:26)
[2020-10-23] MEDS: methylPREDNISolone Sod Succ 40 MG VIAL IVP SCH ×2 (09:03→21:28)
[2020-10-23] MEDS: HumaLOG 300 UNITS/3 ML VIAL SC PRN ×2 (12:07→16:42)
[2020-10-23] MEDS: ALPRAZolam 0.5 MG TAB PO PRN (14:02)
[2020-10-24] MEDS: ALPRAZolam 0.5 MG TAB PO PRN (02:16)
[2020-10-24] MEDS: HYDROcodone/Acetaminophen 5/325 mg Tablet PO PRN (05:30)
[2020-10-24 08:22] LABS: #Basophils 0.1 thou/uL (0.0-0.2); #Lymphocytes 0.5 thou/uL (1.20-3.40); #Monocytes 0.3 thou/uL (0.11-0.59); #Neutrophils 7.4 thou/uL (1.40-6.50); %Basophils 0.6 % (0.0-1.0); %Eosinophils 0.2 % (0.0-10.0); %Lymphocytes 6.4 % (21.0-51.0); %Monocytes 3.8 % (0.0-10.0); Hemoglobin 11.5 g/dL (12.0-16.0); Mean Corpuscular HGB CONC 32.3 g/dL (32.0-36.0); Mean Corpuscular Hemoglobin 29.9 pg (27.0-31.0); Mean Corpuscular Volume 92.6 fL (78.0-98.0); Mean Platelet Volume 8.4 fL (7.4-10.4); Platelet Count 203 thou/uL (130-400); RBC Distribution Width 14.6 % (11.5-14.5); Red Blood Cell (RBC) Count 3.83 mill/uL (4.20-5.40); White Blood Cell (WBC) Count 8.3 thou/uL (4.8-10.8)
[2020-10-24] MEDS: Ascorbic Acid 500 mg Chewable Tablet PO SCH (08:33)
[2020-10-24] MEDS: Amlodipine 5 MG TAB PO SCH ×2 (08:33→21:28)
[2020-10-24] MEDS: Carvedilol 6.25 MG TAB PO SCH ×2 (08:33→17:16)
[2020-10-24] MEDS: Furosemide 40 MG TAB PO SCH ×2 (08:34→14:54)
[2020-10-24] MEDS: guaiFENesin ER 600 MG TAB PO SCH ×2 (08:34→21:30)
[2020-10-24] MEDS: Zinc Sulfate 220 MG CAP PO SCH (08:34)
[2020-10-24] MEDS: hydrALAZINE 25 MG TAB PO SCH ×2 (08:35→21:29)
[2020-10-24 08:36] LABS: ALT (SGPT) 23 U/L (8-55); AST (SGOT) 16 U/L (5-34); Alkaline Phosphatase 67 U/L (40-110); Anion Gap 16 mmol/L (10-20); BUN (Urea Nitrogen) 18 mg/dL (9.8-20.1); Bilirubin, Total 0.5 mg/dL (0.2-1.2); Calc. Creatinine Clearance 125 mL/min (70-130); Calcium 8.7 mg/dL (7.8-10.44); Carbon Dioxide 26 mmol/L (23-31); Chloride 101 mmol/L (98-107); Globulin 2.5 g/dL (2.4-3.5); Glucose 119 mg/dL (80-115); Potassium 3.1 mmol/L (3.5-5.1); Protein, Total 5.5 g/dL (5.8-8.1); Sodium 140 mmol/L (136-145)
[2020-10-24] MEDS: Sacubitril 49 MG/Valsartan 51 MG TABLET PO SCH ×2 (08:36→21:28)
[2020-10-24] MEDS: ALPRAZolam 0.25 MG TAB PO SCH (08:36)
[2020-10-24] MEDS: Aspirin 81 mg Enteric Coated Tablet PO SCH (08:36)
[2020-10-24] MEDS: Enoxaparin Sodium 60 MG/0.6 ML SYRINGE SC SCH ×2 (08:42→21:27)
[2020-10-24] MEDS: methylPREDNISolone Sod Succ 40 MG VIAL IVP SCH ×2 (08:42→21:28)
[2020-10-24] MEDS: NPH, Human Insulin Isophane 300 UNIT/3 ML VIAL SC SCH ×2 (08:43→21:47)
[2020-10-24] MEDS: Benzonatate 100 MG CAP PO SCH ×3 (09:02→21:55)
[2020-10-24] MEDS ORDERED: Potassium Chloride 20 MEQ TAB PO SCH (09:15)
[2020-10-24] MEDS: HumaLOG 300 UNITS/3 ML VIAL SC PRN (21:48)
[2020-10-24] MEDS: Melatonin 3 MG TAB PO PRN (21:56)
[2020-10-25] MEDS: ALPRAZolam 0.25 MG TAB PO SCH ×3 (01:44→18:16)
[2020-10-25] MEDS: HumaLOG 300 UNITS/3 ML VIAL SC PRN ×2 (06:36→16:42)
[2020-10-25] MEDS: Benzonatate 100 MG CAP PO SCH ×3 (09:34→23:15)
[2020-10-25] MEDS: Aspirin 81 mg Enteric Coated Tablet PO SCH (09:34)
[2020-10-25] MEDS: guaiFENesin ER 600 MG TAB PO SCH ×2 (09:35→21:14)
[2020-10-25] MEDS: Carvedilol 6.25 MG TAB PO SCH ×2 (09:35→16:42)
[2020-10-25] MEDS: Furosemide 40 MG TAB PO SCH ×2 (09:35→16:42)
[2020-10-25] MEDS: Amlodipine 5 MG TAB PO SCH ×2 (09:35→21:14)
[2020-10-25] MEDS: Zinc Sulfate 220 MG CAP PO SCH (09:36)
[2020-10-25] MEDS: Enoxaparin Sodium 60 MG/0.6 ML SYRINGE SC SCH ×2 (09:36→21:15)
[2020-10-25] MEDS: Ascorbic Acid 500 mg Chewable Tablet PO SCH (09:36)
[2020-10-25] MEDS: hydrALAZINE 25 MG TAB PO SCH ×2 (09:36→21:14)
[2020-10-25] MEDS: Sacubitril 49 MG/Valsartan 51 MG TABLET PO SCH ×2 (09:37→21:13)
[2020-10-25] MEDS: methylPREDNISolone Sod Succ 40 MG VIAL IVP SCH ×2 (09:37→21:18)
[2020-10-25] MEDS: NPH, Human Insulin Isophane 300 UNIT/3 ML VIAL SC SCH ×2 (09:40→21:17)
[2020-10-25 17:54] LABS: Potassium 4.3 mmol/L (3.5-5.1)
[2020-10-25] MEDS: Melatonin 3 MG TAB PO PRN (21:14)
[2020-10-25] MEDS: Acetaminophen 325 MG TAB PO PRN (23:15)
[2020-10-26] MEDS: Acetaminophen 325 MG TAB PO PRN ×4 (04:43→18:39)
[2020-10-26] MEDS: ALPRAZolam 0.25 MG TAB PO SCH (07:41)
[2020-10-26] MEDS: Benzonatate 100 MG CAP PO SCH ×2 (07:41→16:44)
[2020-10-26] MEDS: Enoxaparin Sodium 60 MG/0.6 ML SYRINGE SC SCH (10:12)
[2020-10-26] MEDS: Amlodipine 5 MG TAB PO SCH ×2 (10:13→21:07)
[2020-10-26] MEDS: Carvedilol 6.25 MG TAB PO SCH ×2 (10:14→16:44)
[2020-10-26] MEDS: Ascorbic Acid 500 mg Chewable Tablet PO SCH (10:14)
[2020-10-26] MEDS: hydrALAZINE 25 MG TAB PO SCH ×2 (10:14→21:08)
[2020-10-26] MEDS: Furosemide 40 MG TAB PO SCH (10:14)
[2020-10-26] MEDS: Zinc Sulfate 220 MG CAP PO SCH (10:15)
[2020-10-26] MEDS: guaiFENesin ER 600 MG TAB PO SCH ×2 (10:15→21:09)
[2020-10-26] MEDS: Aspirin 81 mg Enteric Coated Tablet PO SCH (10:15)
[2020-10-26] MEDS: methylPREDNISolone Sod Succ 40 MG VIAL IVP SCH (10:16)
[2020-10-26] MEDS: Sacubitril 49 MG/Valsartan 51 MG TABLET PO SCH ×2 (10:21→22:03)
[2020-10-26] MEDS: NPH, Human Insulin Isophane 300 UNIT/3 ML VIAL SC SCH ×2 (10:23→21:11)
[2020-10-26] MEDS: HumaLOG 300 UNITS/3 ML VIAL SC PRN ×3 (10:23→21:13)
[2020-10-26] MEDS: ALPRAZolam 0.5 MG TAB PO PRN (14:00)
[2020-10-26] MEDS: Ibuprofen 200 MG TAB PO PRN (14:01)
[2020-10-26] MEDS: Albuterol 200 PUFF (6.7GM INHALER) INH PRN (14:05)
[2020-10-26] MEDS: Apixaban 5 MG TAB PO SCH (21:09)
[2020-10-26] MEDS ORDERED: Sodium Chloride 0.9% 500 ML IV SCH (22:30)
[2020-10-26] MEDS: Melatonin 3 MG TAB PO PRN (22:38)
[2020-10-27] MEDS: ALPRAZolam 0.25 MG TAB PO SCH ×2 (00:07→10:01)
[2020-10-27] MEDS: Benzonatate 100 MG CAP PO SCH ×3 (02:34→17:36)
[2020-10-27] MEDS ORDERED: Furosemide 40 MG TAB PO SCH (09:00)
[2020-10-27] MEDS: Carvedilol 6.25 MG TAB PO SCH (09:54)
[2020-10-27] MEDS: Ascorbic Acid 500 mg Chewable Tablet PO SCH (09:55)
[2020-10-27] MEDS: Amlodipine 5 MG TAB PO SCH (09:55)
[2020-10-27] MEDS: Apixaban 5 MG TAB PO SCH (09:55)
[2020-10-27] MEDS: predniSONE 20 MG TAB PO SCH (09:55)
[2020-10-27] MEDS: Aspirin 81 mg Enteric Coated Tablet PO SCH (09:56)
[2020-10-27] MEDS: hydrALAZINE 25 MG TAB PO SCH (09:56)
[2020-10-27] MEDS: guaiFENesin ER 600 MG TAB PO SCH ×2 (09:56→20:06)
[2020-10-27] MEDS: Sacubitril 49 MG/Valsartan 51 MG TABLET PO SCH (09:57)
[2020-10-27] MEDS: NPH, Human Insulin Isophane 300 UNIT/3 ML VIAL SC SCH ×2 (09:57→20:14)
[2020-10-27] MEDS: Loperamide HCl 2 MG CAP PO PRN (09:58)
[2020-10-27] MEDS: Zinc Sulfate 220 MG CAP PO SCH (09:58)
[2020-10-27] MEDS: Carvedilol 3.125 MG TAB PO SCH (17:36)
[2020-10-27] MEDS: HumaLOG 300 UNITS/3 ML VIAL SC PRN (17:37)
[2020-10-27] MEDS: Melatonin 3 MG TAB PO PRN (20:06)
[2020-10-28] MEDS: Benzonatate 100 MG CAP PO SCH ×3 (00:33→15:45)
[2020-10-28] MEDS: Carvedilol 3.125 MG TAB PO SCH ×2 (09:37→15:42)
[2020-10-28] MEDS: Ascorbic Acid 500 mg Chewable Tablet PO SCH (09:38)
[2020-10-28] MEDS: predniSONE 20 MG TAB PO SCH (09:38)
[2020-10-28] MEDS: Apixaban 5 MG TAB PO SCH ×2 (09:38→21:17)
[2020-10-28] MEDS: Zinc Sulfate 220 MG CAP PO SCH (09:39)
[2020-10-28] MEDS: guaiFENesin ER 600 MG TAB PO SCH ×2 (09:39→21:16)
[2020-10-28] MEDS: Aspirin 81 mg Enteric Coated Tablet PO SCH (09:39)
[2020-10-28] MEDS: NPH, Human Insulin Isophane 300 UNIT/3 ML VIAL SC SCH ×2 (09:42→21:22)
[2020-10-28] MEDS ORDERED: Furosemide 40 MG/4 ML VIAL SLOW IVP SCH (13:00)
[2020-10-28] MEDS: ALPRAZolam 0.25 MG TAB PO PRN (15:42)
[2020-10-28] MEDS: Ibuprofen 200 MG TAB PO PRN (17:42)
[2020-10-28] MEDS: Melatonin 3 MG TAB PO PRN (21:17)
[2020-10-29] MEDS: Benzonatate 100 MG CAP PO SCH ×3 (01:19→16:40)
[2020-10-29] MEDS: Acetaminophen 325 MG TAB PO PRN ×2 (02:19→16:02)
[2020-10-29] MEDS: ALPRAZolam 0.25 MG TAB PO PRN ×3 (02:19→16:02)
[2020-10-29] MEDS: Zinc Sulfate 220 MG CAP PO SCH (08:53)
[2020-10-29] MEDS: Loperamide HCl 2 MG CAP PO PRN (08:54)
[2020-10-29] MEDS: predniSONE 5 MG TAB PO SCH (08:54)
[2020-10-29] MEDS: Carvedilol 3.125 MG TAB PO SCH ×2 (08:54→16:02)
[2020-10-29] MEDS: guaiFENesin ER 600 MG TAB PO SCH ×2 (08:54→20:20)
[2020-10-29] MEDS: Apixaban 5 MG TAB PO SCH ×2 (08:54→20:20)
[2020-10-29] MEDS: Ascorbic Acid 500 mg Chewable Tablet PO SCH (08:54)
[2020-10-29] MEDS: NPH, Human Insulin Isophane 300 UNIT/3 ML VIAL SC SCH (08:55)
[2020-10-29] MEDS ORDERED: Aspirin 325 MG TAB ONE (13:57)
[2020-10-29] MEDS ORDERED: Aspirin Chewable 81 MG TAB ONE (13:58)
[2020-10-29] MEDS ORDERED: Aspirin 81 mg Enteric Coated Tablet ONE (13:59)
[2020-10-29] MEDS: Aspirin 81 mg Enteric Coated Tablet PO SCH (14:00)
[2020-10-29] MEDS: Melatonin 3 MG TAB PO PRN (20:20)
[2020-10-30] MEDS: Benzonatate 100 MG CAP PO SCH ×4 (00:34→23:11)
[2020-10-30] MEDS: predniSONE 5 MG TAB PO SCH (08:53)
[2020-10-30] MEDS: Carvedilol 3.125 MG TAB PO SCH ×2 (08:53→16:46)
[2020-10-30] MEDS: guaiFENesin ER 600 MG TAB PO SCH ×2 (08:54→20:31)
[2020-10-30] MEDS: Apixaban 5 MG TAB PO SCH ×2 (08:54→20:31)
[2020-10-30] MEDS: Ascorbic Acid 500 mg Chewable Tablet PO SCH (08:54)
[2020-10-30] MEDS: Aspirin 81 mg Enteric Coated Tablet PO SCH (08:54)
[2020-10-30] MEDS: Zinc Sulfate 220 MG CAP PO SCH (08:55)
[2020-10-30] MEDS: ALPRAZolam 0.25 MG TAB PO PRN ×2 (13:03→23:13)
[2020-10-30] MEDS ORDERED: Furosemide 40 MG/4 ML VIAL SLOW IVP SCH (16:45)
[2020-10-30] MEDS: HumaLOG 300 UNITS/3 ML VIAL SC PRN (16:48)
[2020-10-30] MEDS: Melatonin 3 MG TAB PO PRN (21:39)
[2020-10-30] MEDS: Albuterol 200 PUFF (6.7GM INHALER) INH PRN (21:43)
[2020-10-31] MEDS: Benzonatate 100 MG CAP PO SCH ×3 (08:42→23:39)
[2020-10-31] MEDS: Apixaban 5 MG TAB PO SCH ×2 (08:43→21:00)
[2020-10-31] MEDS: predniSONE 5 MG TAB PO SCH (08:43)
[2020-10-31] MEDS: guaiFENesin ER 600 MG TAB PO SCH ×2 (08:43→20:59)
[2020-10-31] MEDS: Carvedilol 3.125 MG TAB PO SCH ×2 (08:43→15:37)
[2020-10-31] MEDS: Ascorbic Acid 500 mg Chewable Tablet PO SCH (08:43)
[2020-10-31] MEDS: Aspirin 81 mg Enteric Coated Tablet PO SCH (08:43)
[2020-10-31] MEDS: Zinc Sulfate 220 MG CAP PO SCH (08:44)
[2020-10-31] MEDS: GUAIFENESIN SF SOLN 200 MG/10 ML UDCUP PO PRN ×2 (15:34→21:12)
[2020-10-31] MEDS: Melatonin 3 MG TAB PO PRN (21:00)
[2020-10-31] MEDS: ALPRAZolam 0.25 MG TAB PO PRN (23:39)
[2020-11-01] MEDS: Aspirin 81 mg Enteric Coated Tablet PO SCH (09:56)
[2020-11-01] MEDS: Ascorbic Acid 500 mg Chewable Tablet PO SCH (09:56)
[2020-11-01] MEDS: guaiFENesin ER 600 MG TAB PO SCH ×2 (09:56→21:55)
[2020-11-01] MEDS: Zinc Sulfate 220 MG CAP PO SCH (09:56)
[2020-11-01] MEDS: Carvedilol 3.125 MG TAB PO SCH ×2 (09:56→15:55)
[2020-11-01] MEDS: predniSONE 5 MG TAB PO SCH (09:56)
[2020-11-01] MEDS: Benzonatate 100 MG CAP PO SCH ×2 (09:57→15:54)
[2020-11-01] MEDS: Apixaban 5 MG TAB PO SCH ×2 (09:57→21:55)
[2020-11-01 10:13] LABS: Anion Gap 17 mmol/L (10-20); BUN (Urea Nitrogen) 12 mg/dL (9.8-20.1); Calc. Creatinine Clearance 129 mL/min (70-130); Calcium 8.9 mg/dL (7.8-10.44); Carbon Dioxide 29 mmol/L (23-31); Chloride 97 mmol/L (98-107); Glucose 101 mg/dL (80-115); Sodium 140 mmol/L (136-145)
[2020-11-01 10:17] LABS: Potassium 2.9 mmol/L (3.5-5.1)
[2020-11-01 10:20] LABS: Hemoglobin 10.6 g/dL (12.0-16.0); Mean Corpuscular HGB CONC 32.3 g/dL (32.0-36.0); Mean Corpuscular Hemoglobin 30.3 pg (27.0-31.0); Mean Corpuscular Volume 93.8 fL (78.0-98.0); Mean Platelet Volume 8.2 fL (7.4-10.4); Platelet Count 214 thou/uL (130-400); RBC Distribution Width 15.5 % (11.5-14.5); White Blood Cell (WBC) Count 4.8 thou/uL (4.8-10.8)
[2020-11-01 11:40] LABS: Band 7 % (5-11); Lymphocytes 11 % (21-51); MDiff Complete? YES; Monocytes 4 % (0-10); Neutrophil 78 % (42-75); Nucleated RBC 1 % (0); Platelet Morphology Comment Appears Adequate; Polychromasia SLIGHT = 2-3 cells (100X) (0-2/hpf)
[2020-11-01] MEDS: Potassium Chloride 20 MEQ TAB PO SCH ×2 (12:30→15:55)
[2020-11-01] MEDS: Ibuprofen 200 MG TAB PO PRN (12:30)
[2020-11-01] MEDS: Acetaminophen 325 MG TAB PO PRN (12:33)
[2020-11-01] MEDS: ALPRAZolam 0.25 MG TAB PO PRN (15:57)
[2020-11-01 21:02] LABS: Potassium 3.9 mmol/L (3.5-5.1)
[2020-11-01] MEDS: Melatonin 3 MG TAB PO PRN (21:55)
[2020-11-02] MEDS: GUAIFENESIN SF SOLN 200 MG/10 ML UDCUP PO PRN ×2 (00:33→05:56)
[2020-11-02] MEDS: Benzonatate 100 MG CAP PO SCH ×4 (00:34→14:55)
[2020-11-02 04:31] LABS: Hemoglobin 10.1 g/dL (12.0-16.0); Mean Corpuscular Hemoglobin 29.5 pg (27.0-31.0); Platelet Count 215 thou/uL (130-400); RBC Distribution Width 15.8 % (11.5-14.5); Red Blood Cell (RBC) Count 3.42 mill/uL (4.20-5.40); White Blood Cell (WBC) Count 4.4 thou/uL (4.8-10.8)
[2020-11-02 04:36] LABS: Anion Gap 16 mmol/L (10-20); BUN (Urea Nitrogen) 16 mg/dL (9.8-20.1); Calc. Creatinine Clearance 111 mL/min (70-130); Calcium 8.5 mg/dL (7.8-10.44); Carbon Dioxide 27 mmol/L (23-31); Chloride 101 mmol/L (98-107); Glucose 107 mg/dL (80-115); Sodium 140 mmol/L (136-145)
[2020-11-02 05:51] LABS: Band 10 % (5-11); Lymphocytes 7 % (21-51); MDiff Complete? YES; Monocytes 1 % (0-10); Neutrophil 82 % (42-75); Nucleated RBC 2 % (0)
[2020-11-02] MEDS: predniSONE 5 MG TAB PO SCH ×2 (08:41→09:47)
[2020-11-02] MEDS: Ascorbic Acid 500 mg Chewable Tablet PO SCH ×2 (08:42→09:48)
[2020-11-02] MEDS: Aspirin 81 mg Enteric Coated Tablet PO SCH ×2 (08:42→09:48)
[2020-11-02] MEDS: Apixaban 5 MG TAB PO SCH ×3 (08:42→21:07)
[2020-11-02] MEDS: Zinc Sulfate 220 MG CAP PO SCH ×2 (08:42→09:48)
[2020-11-02] MEDS: Carvedilol 3.125 MG TAB PO SCH ×3 (08:42→16:06)
[2020-11-02] MEDS: guaiFENesin ER 600 MG TAB PO SCH ×3 (08:42→21:08)
[2020-11-02] MEDS: ALPRAZolam 0.25 MG TAB PO PRN (09:55)
[2020-11-02] MEDS ORDERED: Lorazepam 2 MG/ML VIAL ONE (10:43)
[2020-11-02] MEDS ORDERED: Lorazepam 2 MG/ML VIAL SLOW IVP SCH (11:00)
[2020-11-02] MEDS ORDERED: Propofol 1,000 MG/100 ML VIAL IV ONE (11:27)
[2020-11-02] MEDS ORDERED: Fentanyl CADD 100 ML ONE (11:54)
[2020-11-02 12:06] LABS: Actual Bicarbonate (HCO3a) 25.1 mEq/L (22-28); Base Excess (BEa) 0.9 mEq/L (-2.0 to +3.0); CO2 Tension 38.1 mmHg (35.0-45.0); Calcium, Ionized (arterial) 1.09 mmol/L (1.12-1.30); Carboxyhemoglobin (COHb) 1.2 gm% (0.0-3.0); Hemoglobin (Hb) 10.3 g/dL (12.0-16.0); O2 Tension (PaO2), arterial 66.9 mmHg (> 80.0); Potassium - ABG Lab 4.04 mmol/L (3.70-5.30); pH, Arterial 7.44 (7.35-7.45)
[2020-11-02 12:08] LABS: ALV-art Gradient 598.475 mmHg (0-20); Puncture Site LRA
[2020-11-02] MEDS ORDERED: Vecuronium 10 MG VIAL ONE (12:29)
[2020-11-02] MEDS ORDERED: Propofol BOLUS 1,000 MG/100 ML VIAL IV PRN (12:30)
[2020-11-02] MEDS ORDERED: Fentanyl BOLUS 250 ML IVPB PRN (12:30)
[2020-11-02] MEDS: Vecuronium 10 MG VIAL IV PRN (14:23)
[2020-11-02] MEDS: Lorazepam 2 MG/ML VIAL SLOW IVP PRN (14:24)
[2020-11-02] MEDS: Pantoprazole 40 MG VIAL IVP SCH (21:08)
[2020-11-03] MEDS: Benzonatate 100 MG CAP PO SCH ×3 (00:16→17:16)
[2020-11-03] MEDS: Propofol 1,000 MG/100 ML VIAL IV PRN ×3 (01:19→22:06)
[2020-11-03] MEDS ORDERED: Fentanyl CADD 100 ML ONE ×2 (04:49→22:56)
[2020-11-03] MEDS: Fentanyl CADD 100 ML IV SCH ×2 (04:52→23:05)
[2020-11-03 05:25] LABS: Anion Gap 20 mmol/L (10-20); BUN (Urea Nitrogen) 14 mg/dL (9.8-20.1); Calc. Creatinine Clearance 283 mL/min (70-130); Calcium 8.5 mg/dL (7.8-10.44); Carbon Dioxide 25 mmol/L (23-31); Chloride 102 mmol/L (98-107); Glucose 104 mg/dL (80-115); Potassium 3.9 mmol/L (3.5-5.1); Sodium 143 mmol/L (136-145)
[2020-11-03 05:58] LABS: Band 31 % (5-11); Hemoglobin 9.3 g/dL (12.0-16.0); Lymphocytes 3 % (21-51); MDiff Complete? YES; Mean Corpuscular HGB CONC 33.3 g/dL (32.0-36.0); Mean Corpuscular Hemoglobin 31.4 pg (27.0-31.0); Mean Corpuscular Volume 94.4 fL (78.0-98.0); Mean Platelet Volume 7.8 fL (7.4-10.4); Monocytes 2 % (0-10); Myelocyte 1 % (0-0); Neutrophil 63 % (42-75); Nucleated RBC 4 % (0); Platelet Count 240 thou/uL (130-400); Polychromasia SLIGHT = 2-3 cells (100X) (0-2/hpf); Red Blood Cell (RBC) Count 2.95 mill/uL (4.20-5.40); White Blood Cell (WBC) Count 6.3 thou/uL (4.8-10.8)
[2020-11-03] MEDS: Aspirin Chewable 81 MG TAB PO SCH (08:28)
[2020-11-03] MEDS: Apixaban 5 MG TAB PO SCH ×2 (08:29→21:10)
[2020-11-03] MEDS: predniSONE 5 MG TAB PO SCH (08:29)
[2020-11-03] MEDS: Ascorbic Acid 500 mg Chewable Tablet PO SCH (08:29)
[2020-11-03] MEDS: Carvedilol 3.125 MG TAB PO SCH ×2 (08:29→17:16)
[2020-11-03] MEDS: guaiFENesin ER 600 MG TAB PO SCH ×2 (08:30→21:11)
[2020-11-03] MEDS: Zinc Sulfate 220 MG CAP PO SCH (08:44)
[2020-11-03] MEDS: HumaLOG 300 UNITS/3 ML VIAL SC PRN (13:27)
[2020-11-03] MEDS: Pantoprazole 40 MG VIAL IVP SCH (21:11)
[2020-11-03] MEDS: Lorazepam 2 MG/ML VIAL SLOW IVP PRN (22:06)
[2020-11-04] MEDS: Benzonatate 100 MG CAP PO SCH ×3 (00:12→17:23)
[2020-11-04] MEDS: Lorazepam 2 MG/ML VIAL SLOW IVP PRN (05:46)
[2020-11-04] MEDS: HumaLOG 300 UNITS/3 ML VIAL SC PRN ×3 (05:48→22:39)
[2020-11-04 05:59] LABS: Hemoglobin 7.9 g/dL (12.0-16.0); Mean Corpuscular HGB CONC 31.8 g/dL (32.0-36.0); Mean Corpuscular Hemoglobin 30.7 pg (27.0-31.0); Mean Corpuscular Volume 96.5 fL (78.0-98.0); Mean Platelet Volume 7.4 fL (7.4-10.4); Platelet Count 207 thou/uL (130-400); RBC Distribution Width 16.3 % (11.5-14.5); Red Blood Cell (RBC) Count 2.56 mill/uL (4.20-5.40); White Blood Cell (WBC) Count 4.6 thou/uL (4.8-10.8)
[2020-11-04 06:14] LABS: BUN (Urea Nitrogen) 21 mg/dL (9.8-20.1); Calc. Creatinine Clearance 124 mL/min (70-130); Calcium 8.1 mg/dL (7.8-10.44); Carbon Dioxide 31 mmol/L (23-31); Chloride 102 mmol/L (98-107); Glucose 182 mg/dL (80-115); Potassium 3.5 mmol/L (3.5-5.1); Sodium 139 mmol/L (136-145)
[2020-11-04 06:36] LABS: Band 19 % (5-11); Lymphocytes 8 % (21-51); MDiff Complete? YES; Neutrophil 73 % (42-75)
[2020-11-04 06:50] LABS: Anion Gap 10 mmol/L (10-20)
[2020-11-04] MEDS ORDERED: Potassium Chloride 40 MEQ in Sodium Chloride 0.9% 250 ML 250 ML IVPB SCH (07:00)
[2020-11-04] MEDS: Aspirin Chewable 81 MG TAB PO SCH (08:09)
[2020-11-04] MEDS: Carvedilol 3.125 MG TAB PO SCH ×2 (08:09→17:24)
[2020-11-04] MEDS: Propofol 1,000 MG/100 ML VIAL IV PRN ×3 (08:10→22:39)
[2020-11-04] MEDS: Zinc Sulfate 220 MG CAP PO SCH (08:10)
[2020-11-04] MEDS: Ascorbic Acid 500 mg Chewable Tablet PO SCH (08:10)
[2020-11-04] MEDS: predniSONE 5 MG TAB PO SCH (08:11)
[2020-11-04] MEDS: guaiFENesin ER 600 MG TAB PO SCH ×2 (08:11→20:55)
[2020-11-04] MEDS: Apixaban 5 MG TAB PO SCH ×2 (09:35→20:55)
[2020-11-04] MEDS ORDERED: Fentanyl CADD 100 ML ONE (17:01)
[2020-11-04] MEDS: Pantoprazole 40 MG VIAL IVP SCH (20:55)
[2020-11-05] MEDS: Benzonatate 100 MG CAP PO SCH ×3 (00:09→12:07)
[2020-11-05] MEDS: Lorazepam 2 MG/ML VIAL SLOW IVP PRN (00:09)
[2020-11-05] MEDS: Vecuronium 10 MG VIAL IV PRN ×2 (01:23→04:27)
[2020-11-05] MEDS: Propofol 1,000 MG/100 ML VIAL IV PRN ×4 (04:27→20:59)
[2020-11-05] MEDS: HumaLOG 300 UNITS/3 ML VIAL SC PRN ×4 (04:27→21:32)
[2020-11-05 04:38] LABS: Anion Gap 13 mmol/L (10-20); BUN (Urea Nitrogen) 17 mg/dL (9.8-20.1); Calc. Creatinine Clearance 133 mL/min (70-130); Carbon Dioxide 28 mmol/L (23-31); Chloride 104 mmol/L (98-107); Glucose 165 mg/dL (80-115); Potassium 4.1 mmol/L (3.5-5.1); Sodium 141 mmol/L (136-145)
[2020-11-05 04:41] LABS: Band 15 % (5-11); Hemoglobin 8.1 g/dL (12.0-16.0); Hypochromia SLIGHT = 6-15 cells (100X) (0-5/hpf); Lymphocytes 4 % (21-51); MDiff Complete? YES; Mean Corpuscular Hemoglobin 29.6 pg (27.0-31.0); Mean Corpuscular Volume 95.3 fL (78.0-98.0); Mean Platelet Volume 7.8 fL (7.4-10.4); Monocytes 12 % (0-10); Neutrophil 69 % (42-75); Platelet Count 226 thou/uL (130-400); Platelet Morphology Comment Appears Adequate; RBC Distribution Width 16.6 % (11.5-14.5); Red Blood Cell (RBC) Count 2.74 mill/uL (4.20-5.40)
[2020-11-05] MEDS: Apixaban 5 MG TAB PO SCH ×2 (09:26→21:02)
[2020-11-05] MEDS: Aspirin Chewable 81 MG TAB PO SCH (09:27)
[2020-11-05] MEDS: Zinc Sulfate 220 MG CAP PO SCH (09:27)
[2020-11-05] MEDS: Ascorbic Acid 500 mg Chewable Tablet PO SCH (09:27)
[2020-11-05] MEDS: methylPREDNISolone Sod Succ 40 MG VIAL IVP SCH (09:27)
[2020-11-05] MEDS: Carvedilol 3.125 MG TAB PO SCH ×2 (09:28→17:06)
[2020-11-05] MEDS: guaiFENesin ER 600 MG TAB PO SCH ×2 (09:28→20:59)
[2020-11-05] MEDS ORDERED: Norepinephrine 8 MG/0.9% NS 250 ML ONE (10:02)
[2020-11-05] MEDS: predniSONE 5 MG TAB PO SCH (12:23)
[2020-11-05 16:05] VITALS: BMI 32.1
[2020-11-05 18:55] VITALS: BP 103/63
[2020-11-05] MEDS: Pantoprazole 40 MG VIAL IVP SCH (20:59)
[2020-11-06] MEDS: Propofol 1,000 MG/100 ML VIAL IV PRN ×4 (00:47→11:29)
[2020-11-06] MEDS: Benzonatate 100 MG CAP PO SCH ×2 (00:47→08:23)
[2020-11-06] MEDS ORDERED: Fentanyl CADD 100 ML ONE (02:30)
[2020-11-06] MEDS: Fentanyl CADD 100 ML IV SCH (02:37)
[2020-11-06 04:41] VITALS: TEMP 98.8
[2020-11-06 05:06] LABS: Chloride 102 mmol/L (98-107); Potassium 4.6 mmol/L (3.5-5.1); Sodium 138 mmol/L (136-145)
[2020-11-06 05:07] LABS: Glucose 148 mg/dL (80-115)
[2020-11-06 05:09] LABS: Anion Gap 13 mmol/L (10-20); Carbon Dioxide 28 mmol/L (23-31)
[2020-11-06 05:10] LABS: Calc. Creatinine Clearance 113 mL/min (70-130)
[2020-11-06 05:11] LABS: BUN (Urea Nitrogen) 29 mg/dL (9.8-20.1)
[2020-11-06 05:13] LABS: Band 15 % (5-11); Hemoglobin 7.5 g/dL (12.0-16.0); Lymphocytes 21 % (21-51); MDiff Complete? YES; Mean Corpuscular HGB CONC 32.7 g/dL (32.0-36.0); Mean Corpuscular Hemoglobin 31.6 pg (27.0-31.0); Mean Corpuscular Volume 96.4 fL (78.0-98.0); Mean Platelet Volume 7.8 fL (7.4-10.4); Metamyelocyte 1 % (0-0); Monocytes 4 % (0-10); Neutrophil 55 % (42-75); Nucleated RBC 4 % (0); Platelet Count 218 thou/uL (130-400); Platelet Morphology Comment Appears Adequate; RBC Distribution Width 16.1 % (11.5-14.5); RBC Morphology Normal; Reactive Lymphocytes 4 % (0-10); Red Blood Cell (RBC) Count 2.39 mill/uL (4.20-5.40)
[2020-11-06 07:45] LABS: Actual Bicarbonate (HCO3a) 25.6 mEq/L (22-28); Base Excess (BEa) 1.1 mEq/L (-2.0 to +3.0); CO2 Tension 40.1 mmHg (35.0-45.0); Calcium, Ionized (arterial) 1.13 mmol/L (1.12-1.30); Carboxyhemoglobin (COHb) 1.2 gm% (0.0-3.0); Hemoglobin (Hb) 7.5 g/dL (12.0-16.0); pH, Arterial 7.42 (7.35-7.45)
[2020-11-06] MEDS: Vecuronium 10 MG VIAL IV PRN ×2 (08:21→11:29)
[2020-11-06] MEDS: Lorazepam 2 MG/ML VIAL SLOW IVP PRN (08:21)
[2020-11-06] MEDS: Zinc Sulfate 220 MG CAP PO SCH (08:22)
[2020-11-06] MEDS: Aspirin Chewable 81 MG TAB PO SCH (08:22)
[2020-11-06] MEDS: methylPREDNISolone Sod Succ 40 MG VIAL IVP SCH (08:22)
[2020-11-06] MEDS: Ascorbic Acid 500 mg Chewable Tablet PO SCH (08:22)
[2020-11-06] MEDS: Carvedilol 3.125 MG TAB PO SCH (08:23)
[2020-11-06] MEDS: guaiFENesin ER 600 MG TAB PO SCH (08:23)
[2020-11-06] MEDS: Apixaban 5 MG TAB PO SCH (08:36)
[2020-11-06 09:00] LABS: O2 Tension (PaO2), arterial 54.3 mmHg (> 80.0); Puncture Site RRA
[2020-11-06 09:01] LABS: ALV-art Gradient 608.575 mmHg (0-20)
[2020-11-06] MEDS ORDERED: Fentanyl 100 MCG/2 ML VIAL SLOW IVP PRN (12:41)
== END 2020-11-06 14:53 | disposition expired | DRG 870 ==
LOC: ERS 10:07 → ERHOLD 10:59 → T4-A 16:30 → 2SW 09-16 18:05 → IMCU/EMU 10-13 05:03 → CCU 11-02 13:08
PROVIDERS: ADMIT Internal Medicine; ATTEND Internal Medicine
PROC: 3E0333Z Introduction of Anti-inflammatory into Peripheral Vein, Percutaneous Approach (ICD-10-PCS; 2020-09-15)
PROC: 8E0ZXY6 Isolation (ICD-10-PCS; 2020-09-15)
PROC: 5A0955A Assistance with Respiratory Ventilation, Greater than 96 Consecutive Hours, High Flow/Velocity Cannula (ICD-10-PCS; 2020-09-15)
PROC: XW033E5 Introduction of Remdesivir Anti-infective into Peripheral Vein, Percutaneous Approach, New Technology Group 5 (ICD-10-PCS; principal; 2020-09-16)
PROC: XW033H5 Introduction of Tocilizumab into Peripheral Vein, Percutaneous Approach, New Technology Group 5 (ICD-10-PCS; 2020-09-16)
PROC: 5A09557 Assistance with Respiratory Ventilation, Greater than 96 Consecutive Hours, Continuous Positive Airway Pressure (ICD-10-PCS; 2020-10-19)
PROC: 5A1955Z Respiratory Ventilation, Greater than 96 Consecutive Hours (ICD-10-PCS; 2020-11-02)
PROC: 02HV33Z Insertion of Infusion Device into Superior Vena Cava, Percutaneous Approach (ICD-10-PCS; 2020-11-02)
PROC: 0BH17EZ Insertion of Endotracheal Airway into Trachea, Via Natural or Artificial Opening (ICD-10-PCS; 2020-11-02)
PROC: 3E033XZ Introduction of Vasopressor into Peripheral Vein, Percutaneous Approach (ICD-10-PCS; 2020-11-05)
DX: A41.89 Other specified sepsis (principal); U07.1 COVID-19; J12.82 Pneumonia due to coronavirus disease 2019; J80 Acute respiratory distress syndrome; I50.42 Chronic combined systolic (congestive) and diastolic (congestive) heart failure; I42.8 Other cardiomyopathies; K52.1 Toxic gastroenteritis and colitis; N82.3 Fistula of vagina to large intestine; Z66 Do not resuscitate; Z51.5 Encounter for palliative care; I11.0 Hypertensive heart disease with heart failure; E11.9 Type 2 diabetes mellitus without complications; F41.9 Anxiety disorder, unspecified; G47.00 Insomnia, unspecified; I25.10 Atherosclerotic heart disease of native coronary artery without angina pectoris; F39 Unspecified mood [affective] disorder; R62.7 Adult failure to thrive; E78.5 Hyperlipidemia, unspecified; E78.00 Pure hypercholesterolemia, unspecified; E87.6 Hypokalemia; T50.4X5A Adverse effect of drugs affecting uric acid metabolism, initial encounter; Z68.36 Body mass index [BMI] 36.0-36.9, adult; Z90.49 Acquired absence of other specified parts of digestive tract; Z90.710 Acquired absence of both cervix and uterus; Z95.1 Presence of aortocoronary bypass graft; Z95.5 Presence of coronary angioplasty implant and graft; Z95.810 Presence of automatic (implantable) cardiac defibrillator; Z88.1 Allergy status to other antibiotic agents; Z88.8 Allergy status to other drugs, medicaments and biological substances; Z91.19 Patient's noncompliance with other medical treatment and regimen; Z78.1 Physical restraint status; I25.2 Old myocardial infarction; E66.01 Morbid (severe) obesity due to excess calories; F32.A Depression, unspecified
CPT/HCPCS: 36415; 36416; 36600; 71045; 74018; 80048; 80053; 80202; 82274; 82306; 82565; 82728; 82805; 83036; 83735; 83880; 84100; 84132; 85007; 85014; 85018; 85025; 85027; 85049; 85379; 86140; 87324; 87449; 94002; 94003; 94660; 94799; 96374; 96375; C9113; J0360; J1100; J1650; J1815; J1940; J2060; J2405; J2543; J2704; J2765; J2920; J3010; J3262; J3370; J3480; J3490; J7030; J7050; J7512; Q0162